=== PATIENT | male | born 1960 | race Caucasian/White ===

== ENCOUNTER 2017-09-01 20:01 | Emergency (ER) | payer MEDICARE, SELFPAY ==
[2017-09-01 20:01] VITALS: BP 181/90; PULSE 127; RESP 20; TEMP 36.6; O2SAT 97; BMI 38.8
--- NOTE | 2017-09-01 20:16 | EKG12_ITS ---
Test Reason : RHYTHM CHANGE Blood Pressure : / mmHG Vent. Rate : 078 BPM Atrial Rate : 078 BPM P-R Int : 146 ms QRS Dur : 090 ms QT Int : 372 ms P-R-T Axes : 027 036 035 degrees QTc Int : 424 ms Normal sinus rhythm Normal ECG Confirmed by CHUCKY CHEW ([id number]), assignment editor DONNA DALY ([id number]) on 09/15/2017 5:13:39 PM Referred By: LIDA Confirmed By:CHUCKY CHEW
--- NOTE | 2017-09-01 20:16 | RAD_ITS ---
STUDY: X-RAY CHEST REASON FOR EXAM: Male, 57 years old. Dyspnea, chest pain TECHNIQUE: Single AP portable view of the chest. The upper abdomen is overlying the chest. COMPARISON: February 23, 2015 chest x-ray FINDINGS: The lung bases are obscured by body habitus. There is no demonstrated pleural abnormality. There is borderline cardiomegaly. Normal mediastinum and inocente. Normal visualized pulmonary arteries. Normal visualized aortic arch and descending thoracic aorta. There are diffuse degenerative changes of the visualized thoracic spine. Normal visualized ribs, clavicles, and shoulders. There is no demonstrated abnormality of the visualized soft tissue structures of the upper abdomen. RAD/Chest 1 View (Portable) IMPRESSION: The lung bases are partially secured by the soft tissues of the abdomen. Recommend repeating this study if possible. Cannot include or exclude subtle lower lobe infiltrates. Electronically Signed: Joan Carmichael MD at 21:40 EDT Tel , Service support ,
[2017-09-01] MEDS: dilTIAZem 25 MG/5 ML Vial 10 MG IV BOLUS (20:25)
[2017-09-01 20:27] VITALS: BP 165/91; PULSE 194; RESP 24; O2SAT 98
[2017-09-01 20:34] LABS: Absolute Lymphocyte Count 2.48 X10^3/ul (0.83-4.51); Absolute Neutrophil Count 7.5 X10^3/uL (2.0-7.7); Basophil# 0.02 X10^3/uL; Basophil% 0.2 % (0-1); Eosinophil# 0.18 X10^3/uL; Eosinophils% 1.6 % (0-5); Hematocrit 44.8 % (40-54); Hemoglobin 14.7 g/dl (13.0-16.5); Lymphocyte # 2.48 X10^3/ul (4.0); Lymphocyte % 21.9 % (19-41); Mean Corp Hgb Conc 32.8 g/gl (32-36); Mean Corpuscular Hgb 28.8 pg (27.0-32.0); Mean Corpuscular Volume 87.8 fL (80-94); Mean Platelet Vol. 9.2 fl (6.2-12.0); Monocyte# 1.14 X10^3/uL; Monocyte% 10.1 % (0-10); Neutrophil # 7.48 X10^3/uL (2.7-7.7); Platelet Count 228 K/mm3 (150-450); RBC Distribution Width CV 12.9 % (11.6-14.6); RBC Distribution Width SD 41.6 fl (35.1-43.9); White Blood Count 11.3 K/mm3 (4.4-11.0)
[2017-09-01 20:35] LABS: International Normalized Ratio 1.1; POSITIVE COUNT NO; POSITIVE DIFFERENTIAL NO; POSITIVE MORPHOLOGY NO; Prothrombin Time (Protime)PT. 14.2 SECONDS (11.7-14.9)
[2017-09-01 20:36] VITALS: BP 148/79; PULSE 127; RESP 28; O2SAT 97
[2017-09-01] MEDS: Enoxaparin 120 MG/0.8 ML Syringe SC (20:51)
[2017-09-01 20:52] LABS: Anion Gap 7 (5-15); BUN 17 mg/dL (7-18); Calcium,Total 8.8 mg/dL (8.5-10.1); Chloride 105 mmol/L (98-107); Creatinine, Serum 1.06 mg/dL (0.70-1.30); EST Glomerular Filtration Rate 76 mL/min (>60); Est Glom Filt Rate - Afr Amer 92 mL/min (>60); Estimated Creatinine Clearance 82.36 ml/min; Glucose 292 mg/dL (74-106); Potassium 4.2 mmol/L (3.5-5.1); Sodium Level 138 mmol/L (136-145); Thyroid Stim Hormone (TSH) 2.46 uIU/mL (0.358-3.74)
[2017-09-01 21:29] VITALS: BP 121/75; PULSE 81; RESP 16; O2SAT 95
[2017-09-01 22:09] VITALS: BP 118/63; PULSE 75; RESP 18; O2SAT 95
--- NOTE | 2017-09-01 22:09 | EKG12_ITS ---
Test Reason : CP Blood Pressure : / mmHG Vent. Rate : 128 BPM Atrial Rate : 256 BPM P-R Int : 000 ms QRS Dur : 082 ms QT Int : 300 ms P-R-T Axes : -02 029 047 degrees QTc Int : 438 ms Atrial flutter with variable A-V block with premature ventricular or aberrantly conducted complexes Nonspecific ST abnormality Abnormal ECG Confirmed by CHUCKY CHEW ([id number]), food expeditor DONNA DALY ([id number] on 09/15/2017 5:27:17 PM Referred By: LIDA Confirmed By:CHUCKY CHEW
--- NOTE | 2017-09-01 22:57 | ED.VISSUMM ---
- ER Visit Summary Date of Service: 09/01/17 Chief Complaint: Rotations, neck burning and dyspnea while walking this evening. History of Present Illness: The patient is a 57 M who has history of hypertension presents with intermittent palpitations for the past couple of weeks. He denies history of PE or DVT. Tonchelsi's episode was different because he had tightness in his neck. He denies cold or heat intolerance. Denies weight gain or weight loss. He is a non-smoker. He does take a baby aspirin a day as well as lisinopril. He denies any ocular, visual or auditory symptoms. He denies chest pain or tightness. He denies dyspnea on exertion, orthopnea or PND. He denies any GI, or muscle symptoms. He denies any neurologic symptoms. He has had a prior stroke with right-sided residual. Physical Examination: Vital signs remarkable heart rate of 128 up to 194. Monitor reveals atrial fibrillation. HEENT exam is unremarkable. Heart is rapid and irregular. There is no murmur. Lungs are clear to auscultation. Abdomen soft nontender. He has mild edema lower extremity's. Neuro exam is nonfocal. Test Results: EKG #1 reveals atrial flutter with variable AV block. EKG #2 reveals atrial fibrillation with a rate of 180+. EKG #3 reveals a sinus rhythm rate of 73 and no ischemic changes. Troponin is normal. White count slightly elevated 11.3. Coags are normal. TSH is 2.46. Glucose is remarkable and elevated at 292. Emergency Department Course and Treatment: Since patient has new onset paroxysmal atrial fibrillation/a flutter cardiac workup was undertaken and included EKG, appropriate blood work including test TSH and troponin. Chest x-ray was obtained to evaluate for any evidence of heart failure. Patient was administered 10 mg of Cardizem IV push and placed on a Cardizem drip. I was informed that he converted. Patient was informed he will need to call Dr. Giraldo's office in the morning for outpatient workup. He was given a dose of Cardizem in the department and Eliquis. He was discharged with prescription for both. Treatment Plan: Outpatient cardiac workup Disposition: Discharge to home with spouse in stable and improved condition Impression: New onset proximal atrial fibrillation with RVR Hyperglycemia, new onset diabetes History of hypertension This note was generated with [employer] dictation software. It may contain incorrect words, spelling, and punctuation that were not noted in review of the chart prior to signing ED Disposition - Plan for ED Patient: Disposition: Home or Assisted Living Chief Complaint: Chest Pain Instructions: ED Afib, ED Diabetes Hypoglycemia Oral Agent Prescriptions: Diltiazem CD [Cardizem CD] 240 mg PO DAILY #30 cap Apixaban [Eliquis] 10 mg PO BID #26 tab Apixaban [Eliquis] 5 mg PO BID #60 tab.ds.pk Metformin HCl 500 mg PO BID #60 tab Referrals: Blayne Haynes MD [Primary Care Provider] - 1 Week Spenser Giraldo MD [STAFF PHYSICIAN] - 5-7 Days
[2017-09-01] MEDS: APIXABAN 5 MG TABLET 10 MG PO (23:36)
[2017-09-01] MEDS: dilTIAZem CD 240 MG Capsule PO (23:36)
[2017-09-01 23:39] VITALS: BP 123/80; PULSE 80; RESP 20; O2SAT 94
== END 2017-09-01 23:40 | disposition home or self-care (01) ==
PROVIDERS: Emergency Provider Emergency Medicine; Family Provider Family Medicine; PCP Family Medicine
DX: I48.0 Paroxysmal atrial fibrillation (principal); E11.65 Type 2 diabetes mellitus with hyperglycemia; I10 Essential (primary) hypertension; I69.398 Other sequelae of cerebral infarction; I63.9 Cerebral infarction, unspecified; E66.9 Obesity, unspecified; Z79.82 Long term (current) use of aspirin; Z79.899 Other long term (current) drug therapy
CPT/HCPCS: 71045; 80048; 84443; 84484; 85025; 85610; 85730; 93005; 96365; 96366; 96372; 96375; 99284; J7030; A4216

== ENCOUNTER → 2017-09-24 06:36 | Outpatient (CLI) | payer MEDICARE, SELFPAY ==
--- NOTE | 2017-09-24 09:26 | STRESSREP ---
Stress Test Report Pharmacologic myocardial perfusion stress test. 57-year-old man with a history of chest pain hypertension paroxysmal atrial fibrillation. Medications Cardizem apixaban lisinopril lovastatin. Stress protocol: Resting EKG demonstrates normal sinus rhythm with a rate of 73 bpm resting blood pressure is 140/80 mmHg. The grams of regadenoson was infused per usual protocol followed by Intravenous saline flush injection continuous EKG monitoring was performed. The patient maintained sinus rhythm throughout the recording. There were occasional ventricular couplet activity noted. The maximum heart rate was 91 bpm which was 56% of maximum predicted heart rate the maximum workload attained was 1 metabolic equivalent. The resting blood pressure was 140/80 mmHg final blood pressure was 138/82 mmHg. No clinical angina was noted. Myocardial perfusion protocol. 14.8 mCi of technetium 99m sestamibi was injected at rest. 0.4 mg regadenoson was infused per usual protocol. At peak infusion 44.6 mCi of technetium 99m sestamibi was injected stress images were obtained stress and rest images were reconstructed and compared in the short axis vertical long and horizontal long axis. Gated images were also obtained. Perfusion SPECT analysis: Review of the stress images demonstrate normal uptake of tracer noted in all areas of the myocardium. The resting images similarly demonstrate normal uptake of tracer noted in all areas of myocardium. No areas of reversibility noted suggest ischemia. No previous infarct was noted. Gated SPECT analysis: The gated ejection fraction is 67%. Conclusion: Normal pharmacologic myocardial perfusion stress test. Preserved ejection fraction.
== END ==
PROVIDERS: Family Provider Family Medicine; PCP Family Medicine; Visit Provider Internal Medicine Cardiovascular Disease
DX: I25.10 Atherosclerotic heart disease of native coronary artery without angina pectoris (principal)
CPT/HCPCS: 78452; 93017; A9500; A4216; J2785

== ENCOUNTER 2020-01-05 09:52 | Observation (INO) | payer MEDICARE, SELFPAY ==
[2020-01-05] VITALS (11 sets, daily range): BP systolic 112–135; BP diastolic 47–86; PULSE 61–101; RESP 16–22; TEMP 36.4–37.5; O2SAT 95–98; BMI 37.0; BMI 36.2
--- NOTE | 2020-01-05 10:10 | EKG12_ITS ---
Test Reason : PALPS Blood Pressure : / mmHG Vent. Rate : 101 BPM Atrial Rate : 101 BPM P-R Int : 148 ms QRS Dur : 102 ms QT Int : 374 ms P-R-T Axes : 021 014 030 degrees QTc Int : 484 ms Sinus tachycardia with frequent and consecutive Premature ventricular complexes Abnormal ECG Confirmed by GLO SCHREIBER, JOSE ALFREDO ([id number]), editor publications MIKE MENA ([id number]) on 01/10/2020 2:20:37 PM Referred By: BECKY Confirmed By:JOSE ALFREDO CODY MD
--- NOTE | 2020-01-05 10:10 | EKG12_ITS ---
Test Reason : PALPS Blood Pressure : / mmHG Vent. Rate : 078 BPM Atrial Rate : 078 BPM P-R Int : 146 ms QRS Dur : 096 ms QT Int : 374 ms P-R-T Axes : 022 010 031 degrees QTc Int : 426 ms Sinus rhythm with frequent Premature ventricular complexes Inferior infarct , age undetermined Abnormal ECG Confirmed by GLO SCHREIBER, JOSE ALFREDO ([id number]), news copy editor MIKE MENA ([id number]) on 01/10/2020 2:20:21 PM Referred By: BECKY Confirmed By:JOSE ALFREDO CODY MD
--- NOTE | 2020-01-05 10:10 | ED.VIS.GEN ---
History of Present Illness Chief Complaint: Palpitations Informant: Patient, Family, Data Software Engineer Narrative: 59-year-old male with a prior history of stroke and paroxysmal A. fib presents the emergency department with palpitations and dyspnea. He tells me for the past week he has been having exertional symptoms of sweating shortness of breath and fatigue. As long as he is at rest he feels okay but continues to have palpitations at rest. He was seen by primary care was reported to have nonsustained V. tach. EMS was called to transport him to the hospital. He is on Eliquis and diltiazem. 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 Nursing informs me that they were notified by the patient's that she has been administering medications only once a day. She states that she had heard that metformin was not good for people so she has been giving half the dose. Eliquis is also been given once a day. Noted to be hyperglycemic for EMS in the 350 range. - Past Medical History (1) Essential hypertension Status: Chronic (2) Gastroesophageal reflux disease Status: Chronic (3) HISTORY ISCHEMIC STROKE Status: Chronic (4) Hemiparesis Status: Chronic (5) Obstructive sleep apnea syndrome Status: Chronic (6) ocular toxoplasmosis Status: Chronic Past Medical History - Allergies and Home Meds Allergies/Adverse Reactions: Allergies No Known Allergies Allergy (Verified 01/05/20 09:56) Primary Care Physician: Blayne Haynes MD [Primary Care Provider] - Past Medical History: - - Atrial fibrillation Surgical History: noncontributory Lives: Spouse/ Significant Other Smoking Status: Never smoker Drugs: None Review of Systems General: Denies: Chills, Fever, Sweats Eyes: Denies: Visual changes - bilaterally, Diplopia ENT: Denies: Rhinorrhea, Sore throat Cardiovascular: Reports: Chest pain, Palpitations Respiratory: Reports: Dyspnea, Dyspnea on exertion. Denies: Cough Gastrointestinal: Denies: Abdominal pain, Nausea, Vomiting, Diarrhea, Melena, Hematochezia Genitourinary: Denies: Dysuria, Hematuria, Frequency Musculoskeletal: Denies: Back pain, Extremity Pain Skin: Denies: Rash, Wounds Neurological: Denies: Headache, Weakness, Numbness Physical Exam Vital Signs/Narrative: Vital Signs Temp Pulse Resp BP Pulse Ox 01/05/20 10:08 99.5 F H 98 20 H 135/86 H 96 01/05/20 09:56 99.5 F H 99 22 H 132/71 H 95 Inital Vital Signs reviewed: Yes General: Well nourished, Well developed, No Acute Distress Head: Normocephalic, Atraumatic Eyes: Perrl, EOMI ENT: Moist mucous membranes, No rhinorrhea Neck: Supple, Nontender Cardiovascular: Regular rate, Regular rhythm, No murmurs, - - Patient appears to be having frequent PVCs and nonsustained V. tach of 8-10 beat duration. Respiratory: No distress, CTA bilaterally, Chest nontender Abdomen: Soft, Nontender, Nondistended, Normal bowel sounds Back: Nontender, Normal Inspection Extremities: Nontender, No edema Skin: Normal color, No rash Neurological: Alert, Oriented x3, Cranial nerves II-XII grossly intact, - - Chronic right-sided weakness with contracture Psychological: Normal affect, Normal Mood Diagnostic/Tx/Re-eval Clinical Impression(s) from Imaging Studies Chest X-Ray 01/05/20 10:20 IMPRESSION: Hyperinflation. No acute abnormality is seen. Electronically Signed: Horace Neema, at 11:05 EDT , Service support , Laboratory Last Values WBC 9.2 K/mm3 (4.4-11.0) 01/05/20 10:00 RBC 5.28 M/mm3 (4.6-6.2) 01/05/20 10:00 Hgb 15.0 g/dL (13.0-16.5) 01/05/20 10:00 Hct 47.0 % (40-54) 01/05/20 10:00 MCV 89.0 fL (80-94) 01/05/20 10:00 MCH 28.4 pg (27.0-32.0) 01/05/20 10:00 MCHC 31.9 g/dL (32-36) L 01/05/20 10:00 RDW Std Deviation 40.7 fl (35.1-43.9) 01/05/20 10:00 RDW Coeff of [place] 12.5 % (11.6-14.6) 01/05/20 10:00 Plt Count 287 K/mm3 (150-450) 01/05/20 10:00 MPV 9.6 fl (6.2-12.0) 01/05/20 10:00 Immature Gran % (Auto) 0.300 % (0.0-0.9) 01/05/20 10:00 Neut % (Auto) 65.6 % (47-70) 01/05/20 10:00 Lymph % (Auto) 21.7 % (19-41) 01/05/20 10:00 [place] % (Auto) 10.6 % (0-10) H 01/05/20 10:00 Eos % (Auto) 1.4 % (0-5) 01/05/20 10:00 Baso % (Auto) 0.4 % (0-1) 01/05/20 10:00 Absolute Neuts (auto) 6.0 X10^3/uL (2.0-7.7) 01/05/20 10:00 Absolute Lymphs (auto) 1.99 X10^3/uL (0.83-4.51) 01/05/20 10:00 Nucleated RBC % 0 % (0-5) 01/05/20 10:00 PT 13.7 SECONDS (11.7-14.9) 01/05/20 10:00 INR 1.1 01/05/20 10:00 APTT 29.6 Seconds (24.1-36.2) 01/05/20 10:00 Sodium 136 mmol/L (136-145) 01/05/20 10:00 Potassium 4.4 mmol/L (3.5-5.1) 01/05/20 10:00 Chloride 103 mmol/L (98-107) 01/05/20 10:00 Carbon Dioxide 29.0 mmol/L (21.0-32.0) 01/05/20 10:00 Anion Gap 4 (5-15) L 01/05/20 10:00 BUN 18 mg/dL (7-18) 01/05/20 10:00 Creatinine 0.98 mg/dL (0.70-1.30) 01/05/20 10:00 Estim Creat Clear Calc 86.88 ml/min 01/05/20 10:00 Est GFR (MDRD) Af Amer 100 mL/min (>60) 01/05/20 10:00 Est GFR (MDRD) Non-Af 83 mL/min (>60) 01/05/20 10:00 BUN/Creatinine Ratio 18.4 RATIO (10-20) 01/05/20 10:00 Glucose 328 mg/dL (74-106) H 01/05/20 10:00 Calcium 9.3 mg/dL (8.5-10.1) 01/05/20 10:00 Magnesium 2.1 mg/dL (1.6-2.6) 01/05/20 10:00 Troponin I < 0.015 ng/mL (<0.045) 01/05/20 10:00 - EKG Initial EKG Interpretation: Sinus Rhythm - Sinus rhythm with frequent PVCs with no concerning features of ACS. Rate of 78 - Medical Decision Making Reviewing his EKGs from the office today I think this is less likely to be V. tach but probably A. fib with aberrancy. Cardiac enzymes are negative. He is mostly been in a sinus rhythm. However his exertional symptoms are very concerning. I am also very concerned about the underdosing of his metformin and his Eliquis. It is been several years (2018) since a stress test has been done. Please reasonable we bring him in for further cardiac evaluation. ED Disposition - Plan for ED Patient: Disposition: Acute Care Hospital [facility] Diagnosis: Paroxysmal atrial fibrillation, Exertional dyspnea Referrals: Blayne Haynes MD [Primary Care Provider] -
--- NOTE | 2020-01-05 10:20 | RAD_ITS ---
STUDY: X-RAY CHEST REASON FOR EXAM: Male, 59 years old. INCREASED DIFFICULTY BREATHING WITH EXERTION. EKG AT OFFICE SHOWED FREQUENT PVCs WITH SHORT RUNS OF VTACH TECHNIQUE: Single AP portable view of the chest. COMPARISON: Comparison is made with prior examination dated 09/01/2017. FINDINGS: EKG electrodes are seen. Hyperinflation. There are decreased bronchovascular markings in the upper lobes suggestive of a emphysematous change. There is no demonstrated pleural abnormality. There is mild cardiac enlargement. Normal mediastinum and inocente. Normal visualized pulmonary arteries. There is atherosclerotic calcification of the aortic arch with tortuosity. There are degenerative changes of the visualized thoracic spine. Normal visualized ribs, clavicles, and shoulders. There is no demonstrated abnormality of the visualized soft tissue structures of the upper abdomen. RAD/Chest 1 View (Portable) IMPRESSION: Hyperinflation. No acute abnormality is seen. Electronically Signed: Horace Bethea, at 11:05 EDT , Service support ,
[2020-01-05 10:28] LABS: International Normalized Ratio 1.1; Prothrombin Time (Protime)PT. 13.7 SECONDS (11.7-14.9)
[2020-01-05 10:29] LABS: Partial Thromboplast Time 29.6 Seconds (24.1-36.2)
[2020-01-05 10:36] LABS: Anion Gap 4 (5-15); BUN 18 mg/dL (7-18); BUN/Creat Ratio 18.4 RATIO (10-20); Calcium,Total 9.3 mg/dL (8.5-10.1); Chloride 103 mmol/L (98-107); Creatinine, Serum 0.98 mg/dL (0.70-1.30); EST Glomerular Filtration Rate 83 mL/min (>60); Est Glom Filt Rate - Afr Amer 100 mL/min (>60); Estimated Creatinine Clearance 86.88 ml/min; Glucose 328 mg/dL (74-106); Magnesium 2.1 mg/dL (1.6-2.6); Potassium 4.4 mmol/L (3.5-5.1); Sodium Level 136 mmol/L (136-145)
[2020-01-05 10:38] LABS: Absolute Lymphocyte Count 1.99 X10^3/uL (0.83-4.51); Basophil# 0.04 X10^3/uL; Basophil% 0.4 % (0-1); Eosinophil# 0.13 X10^3/uL; Eosinophils% 1.4 % (0-5); Lymphocyte # 1.99 X10^3/ul (4.0); Lymphocyte % 21.7 % (19-41); Mean Corp Hgb Conc 31.9 g/dL (32-36); Mean Corpuscular Hgb 28.4 pg (27.0-32.0); Mean Platelet Vol. 9.6 fl (6.2-12.0); Monocyte# 0.97 X10^3/uL; Monocyte% 10.6 % (0-10); NRBC Flagged by Analyzer 0 % (0-5); Neutrophil # 6.03 X10^3/uL (2.7-7.7); Neutrophil % 65.6 % (47-70); Platelet Count 287 K/mm3 (150-450); RBC Distribution Width CV 12.5 % (11.6-14.6); RBC Distribution Width SD 40.7 fl (35.1-43.9); Red Blood Count 5.28 M/mm3 (4.6-6.2); White Blood Count 9.2 K/mm3 (4.4-11.0)
--- NOTE | 2020-01-05 11:43 | HP.PCM_ITS ---
Problem List (1) PVC (premature ventricular contraction) Status: Acute (2) Paroxysmal atrial fibrillation Status: Chronic (3) Exertional dyspnea Status: Acute (4) ocular toxoplasmosis Status: Chronic (5) Obstructive sleep apnea syndrome Status: Chronic (6) HISTORY ISCHEMIC STROKE Status: Chronic (7) Hemiparesis Status: Chronic (8) Gastroesophageal reflux disease Status: Chronic (9) Essential hypertension Status: Chronic History of Present Illness Date of Admission: 01/05/20 Chief Complaint: palpitations The patient is a 59 year old M for the past week has been experiencing palpitations. Palpitations seem to be more aggravated with exertion and patient is endorsing that he is getting short of breath. He denies any chest pain, however. Saw his physician today who directed him to the emergency room. Patient had an EKG showed some bursts of PVCs and with 2-4 burst. Currently he is in normal sinus rhythm. Recently his medications have been adjusted instead of taking them twice a day is only taking certain medications just once a day, including apixaban. [] Past Medical History Past Medical History (Chronic Problems): Chronic Problems Paroxysmal atrial fibrillation (Chronic) ocular toxoplasmosis (Chronic) Obstructive sleep apnea syndrome (Chronic) HISTORY ISCHEMIC STROKE (Chronic) Hemiparesis (Chronic) Gastroesophageal reflux disease (Chronic) Essential hypertension (Chronic) Allergies No Known Allergies Allergy (Verified 01/05/20 09:56) Home Medications: Ambulatory Orders Medication Instructions Recorded Lisinopril 20 mg PO DAILY 09/20/15 Diltiazem CD [Cardizem CD] 240 mg PO DAILY #30 cap 09/01/17 Metformin HCl 500 mg PO BID #60 tab 09/01/17 Apixaban [Eliquis] 5 mg PO DAILY 01/05/20 Lovastatin 20 mg PO DAILY 01/05/20 Surgical History: noncontributory Lives: Spouse/ Significant Other Smoking Status: Never smoker Drugs: None - *Family History Paternal History Items: Heart Disease Review of Systems Constitutional: Denies: Anorexia, Chills, Fever, Night Sweats Eyes: Denies: Blurred vision, Double vision HEENT: Denies: Head Aches, Sinus Congestion, Sinus Drainage Cardiovascular: Denies: Chest Pain, Palpitations Respiratory: Denies: Cough, Shortness of breath at rest, Sputum production Gastrointestinal: Denies: Abdominal Pain, Nausea, Vomiting Musculoskeletal: Denies: Joint Pain, Joint Tenderness Skin: Denies: Rash, Wounds Neurological: Reports: Focal weakness. Denies: Numbness, Tingling Psychiatric: Denies: Anxiety, Depression Hematologic/ Lymphatic: Denies: Easy Bruising, Easy Bleeding, Hx of blood clot Comment: All review of systems were negative except as mentioned above in the history of present illness and the other review of systems. VTE Information - Inpt Only VTE Present on Admission: No VTE Mechan Device Prophylaxis: None VTE Pharm Prophylaxis ordered?: No Reason prophylaxis not ordered:: Treatment Not Indicated Patient Problems: Active and Suspected Problems Exertional dyspnea (Acute) PVC (premature ventricular contraction) (Acute) - Physical Exam Vitals/I&O's: Vital Signs Temp Pulse Resp BP Pulse Ox 37.5 C H 98 20 H 135/86 H 95 01/05/20 10:08 01/05/20 10:08 01/05/20 10:08 01/05/20 10:08 01/05/20 10:22 Oxygen Delivery Method Room Air Weight: 123.7 kg Body Mass Index (BMI) 37.0 General: Alert, Cooperative, No apparent distress HEENT: Atraumatic, Normocephalic Oral: Moist Mucosa, No Gingival or Mucosal Lesions/ Ulcerations Neck: No Nodes, Thyroid Normal Size and Texture Lungs: Clear to auscultation, Normal air movement, No rhonchi, No wheeze, No rales Cardiovascular: Regular rate, Regular Rhythm, Normal S1, Normal S2, No murmurs Abdomen: Bowel Sounds Present, Soft, Non Tender, Non-Distended, No Hepato- splenomegaly Extremities: No edema, No Calf Tenderness Skin: No rashes, No breakdown Neurological: - - contracted right hand Psych/Mental Status: Normal Affect, Appropriate Laboratory Results 01/05/20 10:00: WBC 9.2, RBC 5.28, Hgb 15.0, Hct 47.0, MCV 89.0, MCH 28.4, MCHC 31.9 L, RDW Std Deviation 40.7, RDW Coeff of [place] 12.5, Plt Count 287, MPV 9.6, I mmature Gran % (Auto) 0.300, Neut % (Auto) 65.6, Lymph % (Auto) 21.7, [place] % (Auto) 10.6 H, Eos % (Auto) 1.4, Baso % (Auto) 0.4, Absolute Neuts (auto) 6.0, Absolute Lymphs (auto) 1.99, Nucleated RBC % 0 01/05/20 10:00: PT 13.7, INR 1.1, APTT 29.6 01/05/20 10:00: Sodium 136, Potassium 4.4, Chloride 103, Carbon Dioxide 29.0, Anion Gap 4 L, BUN 18, Creatinine 0.98, Estim Creat Clear Calc 86.88, Est GFR (MDRD) Af Amer 100, Est GFR (MDRD) Non-Af 83, BUN/Creatinine Ratio 18.4, Glucose 328 H, Calcium 9.3, Magnesium 2.1, Troponin I < 0.015 EKG reviewed and showed PVCs with burst of 2 and 4 over normal sinus rhythm. Telemetry reviewed and patient has been in normal sinus rhythm. Chest x-ray personally reviewed and showed normal lung shirley with no infiltrate nor edema. Assessment/Plan All Active Problems Exertional dyspnea (Acute) PVC (premature ventricular contraction) (Acute) 1. Premature ventricular contractions * Associated with dyspnea. Concern for cardiac equivalent. * Plan is to have the patient have a stress test and further evaluate if there is any underlining ischemic disease. * Potassium and magnesium were normal 2. Diabetes mellitus type 2, uncontrolled * Continue with metformin * Sliding scale insulin * Check an A1c 3. History of stroke * Continue with apixaban but make it twice daily 4. Paroxysmal atrial fibrillation * On apixaban. Continue with diltiazem. 5. VTE prophylaxis: Already anticoagulated 6. Advanced care planning: Discussed with the patient. Patient wishes to be DNR Comfort Care arrest and no intubation. Informed patient that he is certainly welcome to change his mind on this at any time. OBSV E&M: [id number] Initial observation care L2
--- NOTE | 2020-01-05 11:55 | NURSING ---
PCU RAQUEL AFIB EXERTIONAL DYSPNEA
--- NOTE | 2020-01-05 12:33 | EKG12_ITS ---
Test Reason : AM Blood Pressure : / mmHG Vent. Rate : 062 BPM Atrial Rate : 062 BPM P-R Int : 150 ms QRS Dur : 098 ms QT Int : 434 ms P-R-T Axes : 007 032 039 degrees QTc Int : 440 ms Normal sinus rhythm Normal ECG When compared with ECG of 05-JAN-2020 10:00, MANUAL COMPARISON REQUIRED, DATA IS UNCONFIRMED Confirmed by BASSAM SCHREIBER, EMILY ([id number]), editor magazine MIKE MENA ([id number]) on 01/11/2020 9:14:03 AM Referred By: RAQUEL Confirmed By:PEYTON BANEGAS MD
[2020-01-05 13:23] LABS: Hemoglobin A1c 9.7 % (3.8-5.6)
[2020-01-05] MEDS: Insulin Lispro 100 UNIT/ML INSULN.PEN SC (17:26)
[2020-01-05] MEDS: metFORMIN HCl 500 MG Tablet PO (17:26)
[2020-01-05 17:36] LABS: Bedside Glucose 247 mg/dL (70-110)
[2020-01-05] MEDS: Atorvastatin Calcium 10 MG Tablet 5 MG PO (21:17)
[2020-01-05] MEDS: APIXABAN 5 MG TABLET PO (21:18)
[2020-01-05 21:25] LABS: Bedside Glucose 255 mg/dL (70-110)
[2020-01-06] VITALS (8 sets, daily range): BP systolic 115–144; BP diastolic 68–91; PULSE 57–83; RESP 16–20; TEMP 36.5–37.1; O2SAT 95–98
--- NOTE | 2020-01-06 05:55 | EKG12_ITS ---
Test Reason : C.P. ADMIT Blood Pressure : / mmHG Vent. Rate : 067 BPM Atrial Rate : 067 BPM P-R Int : 158 ms QRS Dur : 102 ms QT Int : 400 ms P-R-T Axes : 023 012 038 degrees QTc Int : 422 ms Normal sinus rhythm Normal ECG No previous ECGs available Confirmed by BASSAM SCHREIBER, EMILY ([id number]), tape editor MIKE MENA ([id number]) on 01/11/2020 9:15:38 AM Referred By: RAQUEL Confirmed By:PEYTON BANEGAS MD
[2020-01-06] MEDS: Lisinopril 20 MG Tablet PO (06:35)
[2020-01-06] MEDS: Aspirin E.C. 81 MG Tablet PO (06:35)
[2020-01-06] MEDS: 0.9% Saline Lock 10 ML Syringe IV (06:47)
[2020-01-06 06:50] LABS: Bedside Glucose 213 mg/dL (70-110)
[2020-01-06] MEDS: metFORMIN HCl 500 MG Tablet PO (10:51)
[2020-01-06] MEDS: dilTIAZem CD 240 MG Capsule PO (10:52)
[2020-01-06 11:46] LABS: Bedside Glucose 311 mg/dL (70-110)
[2020-01-06] MEDS: Insulin Lispro 100 UNIT/ML INSULN.PEN SC (11:59)
--- NOTE | 2020-01-06 12:13 | PCM.PN.HOSP ---
<Dao Cortes PA - Last Filed: 01/06/20 12:13> Patient Problems: Active and Suspected Problems Exertional dyspnea (Acute) PVC (premature ventricular contraction) (Acute) Reason for Visit: palpitations Subjective: no palpitations today. no cp. pt does get SOB with stairs. Pt father had significant hx multiple MIs. Pt denies hx CAD. On cardizem for pAfib. Currently NSR. Has not seen cardiology since Dr. Diaz retired. Vitals/I&O's: Vital Signs Temp Pulse Resp BP Pulse Ox 98.7 F 73 16 130/80 H 95 01/06/20 12:05 01/06/20 12:05 01/06/20 12:05 01/06/20 12:05 01/06/20 12:05 Oxygen Delivery Method Room Air Weight: 266 lb 15.677 oz Body Mass Index (BMI) 36.2 Intake and Output for Last 24 Hours 01/04/20 01/05/20 01/06/20 23:59 23:59 23:59 Intake Total 650 / 650 220 / 220 Output Total 1150 / 1150 750 / 750 Balance -500 / -500 -530 / -530 General: Alert, Oriented x3, Cooperative HEENT: Atraumatic, PERRLA, EOMI, Normocephalic Neck: Supple, No JVD, Negative Carotid Bruits Lungs: Clear to auscultation, Normal air movement Cardiovascular: Regular rate, No murmurs Abdomen: Bowel Sounds Present, Soft, Non Tender Extremities: No edema, Capillary Refill Less than 3 Seconds Skin: No rashes, No breakdown Musculoskeletal: No Tenderness to Palpation of Joints or Extremities Neurological: Cranial nerves II-XII grossly intact Psych/Mental Status: Normal Affect, Appropriate, Alert and oriented to time, place, person, mood and affect Laboratory Results 01/05/20 10:00: Hemoglobin A1c 9.7 H 01/05/20 13:05: Troponin I < 0.015 01/05/20 16:25: Troponin I < 0.015 01/05/20 17:16: POC Glucose 247 H 01/05/20 21:22: POC Glucose 255 H 01/06/20 06:34: POC Glucose 213 H 01/06/20 11:42: POC Glucose 311 H Current Medications Acetaminophen (Tylenol) 650 mg PO Q6H PRN PRN PRN Reason: Pain Score 1-10/Temp > 100.7 F Apixaban (Eliquis) 5 mg PO BID [facility] Last Admin: 01/05/20 21:18 Dose: 5 mg Documented by: Aspirin (Ecotrin) 81 mg PO DAILY@0800 [facility] Last Admin: 01/06/20 06:35 Dose: 81 mg Documented by: Atorvastatin Calcium (Lipitor) 5 mg PO QHS [facility] Last Admin: 01/05/20 21:17 Dose: 5 mg Documented by: Dextrose (D50w Syringe) 0 gm IV X1 PRN; Protocol PRN Reason: Hypoglycemia Diltiazem HCl (Cardizem Cd) 240 mg PO DAILY [facility] Last Admin: 01/06/20 10:52 Dose: 240 mg Documented by: Glucagon () 1 mg IM .X1 PRN PRN Reason: Hypoglycemia Sodium Chloride () 250 mls @ 15 mls/hr IV .[id number] PRN PRN Reason: Saline Flush Sodium Chloride () 250 mls @ 15 mls/hr IV .[id number] PRN PRN Reason: Additional IVPB Infusion Insulin Human Lispro (Humalog Kwikpen (Bkc)) 0 unit SC TIDAC [facility]; Protocol Last Admin: 01/06/20 11:59 Dose: 5 units Documented by: Lisinopril (Zestril) 20 mg PO DAILY [facility] Last Admin: 01/06/20 06:35 Dose: 20 mg Documented by: Met[facility]) [facility] Last Admin: 01/06/20 10:51 Dose: 500 mg Documented by: Nitroglycerin (Nitrostat) 0.4 mg SUBLINGUAL Q5M PRN PRN Reason: CARDIAC/CHEST PAIN Ondansetron HCl (Zofran) 4 mg IV Q8H PRN PRN PRN Reason: NAUSEA/VOMITING Oxycodone HCl (Oxyir) 5 mg PO Q4H PRN PRN PRN Reason: Pain Score 4-5/10 Oxycodone HCl (Oxyir) 10 mg PO Q4H PRN PRN PRN Reason: Pain Score 6-10/10 Sodium Chloride () 10 - 40 ml IV UD PRN PRN Reason: SALINE FLUSH Last Admin: 01/06/20 06:47 Dose: 10 ml Documented by: STROKE Vital Signs/Narrative: Vital Signs Temp Pulse Resp BP Pulse Ox 01/06/20 12:05 98.7 F 73 16 130/80 H 95 Medical Necessity - Tobacco Use Smoking Status: Never smoker Assessment/Plan All Active Problems Exertional dyspnea (Acute) PVC (premature ventricular contraction) (Acute) 1. Palpitations - stress pending. Non sustatined vtach on monitor. cardizem continued. pt no longer has cigar patcher. Trop neg. CXR hyperinflation. Hx SOB with stairs and significant fm hx of CAD. 2. pAfib - background rhythm is sinus. cardizem/eliquis. 3. hx CVBA - aspirin/statin 4. HTN - continue home meds. 5. DMt2 - metformin, ssi DVT ppx: eliquis This patient was seen by Dao Cortes PA-C under the supervision of Dr. Kiran <Ronald Kiran - Last Filed: 01/06/20 14:00> Vitals/I&O's: Vital Signs Temp Pulse Resp BP Pulse Ox 37.1 C 73 16 130/80 H 95 01/06/20 12:05 01/06/20 12:05 01/06/20 12:05 01/06/20 12:05 01/06/20 12:05 Oxygen Delivery Method Room Air Weight: 121.1 kg Body Mass Index (BMI) 36.2 Intake and Output for Last 24 Hours 01/04/20 01/05/20 01/06/20 23:59 23:59 23:59 Intake Total 650 / 650 220 / 220 Output Total 1150 / 1150 750 / 750 Balance -500 / -500 -530 / -530 General: Alert, Cooperative HEENT: Atraumatic, Normocephalic Lungs: Clear to auscultation, Normal air movement, No rhonchi, No wheeze Cardiovascular: Regular rate, Regular Rhythm, Normal S1, Normal S2, No murmurs Abdomen: Bowel Sounds Present, Soft, Non Tender, Non-Distended Extremities: No edema, No Calf Tenderness Skin: No rashes, No breakdown Psych/Mental Status: Normal Affect, Appropriate Laboratory Results 01/05/20 16:25: Troponin I < 0.015 01/05/20 17:16: POC Glucose 247 H 01/05/20 21:22: POC Glucose 255 H 01/06/20 06:34: POC Glucose 213 H 01/06/20 11:42: POC Glucose 311 H Current Medications Acetaminophen (Tylenol) 650 mg PO Q6H PRN PRN PRN Reason: Pain Score 1-10/Temp > 100.7 F Apixaban (Eliquis) 5 mg PO BID [facility] Last Admin: 01/05/20 21:18 Dose: 5 mg Documented by: Aspirin (Ecotrin) 81 mg PO DAILY@0800 [facility] Last Admin: 01/06/20 06:35 Dose: 81 mg Documented by: Atorvastatin Calcium (Lipitor) 5 mg PO QHS [facility] Last Admin: 01/05/20 21:17 Dose: 5 mg Documented by: Dextrose (D50w Syringe) 0 gm IV X1 PRN; Protocol PRN Reason: Hypoglycemia Diltiazem HCl (Cardizem Cd) 240 mg PO DAILY [facility] Last Admin: 01/06/20 10:52 Dose: 240 mg Documented by: Glucagon () 1 mg IM .X1 PRN PRN Reason: Hypoglycemia Sodium Chloride () 250 mls @ 15 mls/hr IV .[id number] PRN PRN Reason: Saline Flush Sodium Chloride () 250 mls @ 15 mls/hr IV .[id number] PRN PRN Reason: Additional IVPB Infusion Insulin Human Lispro (Humalog Kwikpen (Bkc)) 0 unit SC TIDAC [facility]; Protocol Last Admin: 01/06/20 11:59 Dose: 5 units Documented by: Lisinopril (Zestril) 20 mg PO DAILY [facility] Last Admin: 01/06/20 06:35 Dose: 20 mg Documented by: Metformin HCl (Glucophage) [facility] Last Admin: 01/06/20 10:51 Dose: 500 mg Documented by: Nitroglycerin (Nitrostat) 0.4 mg SUBLINGUAL Q5M PRN PRN Reason: CARDIAC/CHEST PAIN Ondansetron HCl (Zofran) 4 mg IV Q8H PRN PRN PRN Reason: NAUSEA/VOMITING Oxycodone HCl (Oxyir) 5 mg PO Q4H PRN PRN PRN Reason: Pain Score 4-5/10 Oxycodone HCl (Oxyir) 10 mg PO Q4H PRN PRN PRN Reason: Pain Score 6-10/10 Sodium Chloride () 10 - 40 ml IV UD PRN PRN Reason: SALINE FLUSH Last Admin: 01/06/20 06:47 Dose: 10 ml Documented by: STROKE Vital Signs/Narrative: Vital Signs Temp Pulse Resp BP BP Pulse Ox 01/06/20 12:05 37.1 C 73 16 130/80 H 95 01/06/20 11:30 37.0 C 83 20 H 128/69 H 95 Assessment/Plan Patient seen and examined independently. Data reviewed. I agree with the above note by the physician assistant community manager. 1. Premature ventricular contractions Associated with dyspnea. Concern for cardiac equivalent. Plan is to have the patient have a stress test and further evaluate if there is any underlining ischemic disease. Potassium and magnesium were normal 2. Diabetes mellitus type 2, uncontrolled Continue with metformin Sliding scale insulin Check an A1c 3. History of stroke Continue with apixaban but make it twice daily 4. Paroxysmal atrial fibrillation On apixaban. Continue with diltiazem. 5. VTE prophylaxis: Already anticoagulated 6. Advanced care planning: Discussed with the patient. Patient wishes to be DNR Comfort Care arrest and no intubation. Informed patient that he is certainly welcome to change his mind on this at any time. Inpatient E&M: 11782 Subs Hosp L2
--- NOTE | 2020-01-06 14:18 | STRESSREP ---
Stress Test Report Date: 01/06/2020 Procedure: Pharmacologic stress nuclear imaging study Indications: Chest pain Consent: Per the patient Procedure: The patient underwent pharmacologic (Regadenoson) evaluation with a peak heart rate of 116 beats per minute (72%predicted maximal heart rate) and a peak blood pressure of 138/70 mmHg. The baseline ECG demonstrated sinus rhythm. EKG during lexiscan infusion revealed no significant ischemic ST-T changes. EKG post infusion revealed no significant ST-T changes. Patient had PVCs with a 5 beat run of nonsustained V. tach. Patient had a 5 beat run of nonsustained V. tach in the post infusion period. He also had occasional PVCs early after infusion. [There was no complaint of chest discomfort during pharmacologic infusion or recovery]. The examination was discontinued secondary to completion of protocol. Impression: 1. Lexiscan stress test test is negative for Lexiscan infusion induced EKG changes of ischemia. 2. Lexiscan stress test test is negative for Lexiscan infusion induced chest pain. 3. Results of the nuclear portion of the test is as below Myocardial perfusion imaging study: Technique: The patient was injected with 14 millicuries of technetium 99m Cardiolite and subsequently rest SPECT Cardiolite nuclear imaging was obtained in the horizontal long, vertical long, and short axis views. The patient underwent pharmacologic (Regadenoson) evaluation. Please see above for details. The patient was injected with 42 millicuries of technetium 99m Cardiolite and subsequently stress SPECT Cardiolite nuclear imaging was obtained in the horizontal long, vertical long, and short axis views. A gated Cardiolite study at peak stress was obtained. Interpretation: Rest and stress SPECT Cardiolite nuclear imaging status post realignment, normalization, and attenuation correction demonstrate normal myocardial radioisotope uptake overall. Gated images reveal no significant regional wall motion abnormalities. The reported LVEF is greater than 70%. Impression: 1. There is no evidence of significant ischemia or infarction. 2. Estimated ejection fraction is greater than 70%. This note was generated with [email or web address] software. It may contain incorrect words, spelling, and punctuation that were not noted in checking the note before signing.
[2020-01-06] MEDS: APIXABAN 5 MG TABLET PO (14:56)
--- NOTE | 2020-01-06 15:26 | PCM.DC ---
- Discharge Diagnoses Current Active Problems: Current Active and Chronic Problems Paroxysmal atrial fibrillation (Chronic) Exertional dyspnea (Acute) PVC (premature ventricular contraction) (Acute) You will use the following diet at home:: Cardiac Your food should be the consistency of: Regular Your liquids should be the consistency of: Regular/Thin Discharge Activity: Return to Normal Activity Allergies/Adverse Reactions: Allergies No Known Allergies Allergy (Verified 01/05/20 09:56) Medications to take at Discharge Lisinopril 20 mg PO DAILY 09/20/15 Diltiazem CD [Cardizem CD] 240 mg PO DAILY #30 cap 09/01/17 Apixaban [Eliquis] 5 mg PO BID 01/05/20 Aspirin E.C. [Ecotrin] 81 mg PO DAILY@0800 01/05/20 Lovastatin 20 mg PO DAILY 01/05/20 Metformin HCl 500 mg PO TID 01/05/20 Metoprolol Tartrate 25 mg PO BID #60 tab 01/06/20 The following prescriptions were given: Metoprolol Tartrate 25 mg PO BID #60 tab Transmission Status: Pending to [facility]/pharmacy #[id number] Primary Care Physician: Blayne Haynes MD [Primary Care Provider] - Please follow up with your Primary Care Physician in: 1-2 weeks Test Results: Test results from this visit will be discussed in further detail at your follow-up appointment, if applicable. Please Follow Up With: Jaclyn Gill MD When: 3 weeks Proposed Discharge Date: 01/06/20
--- NOTE | 2020-01-06 15:27 | PCM.DC.SUM ---
Discharge Date and Diagnosis - Problem List Patient Problems: Active and Suspected Problems Exertional dyspnea (Acute) PVC (premature ventricular contraction) (Acute) Date of Admission: 01/05/20 Date of Discharge: 01/06/20 - Primary Discharge Diagnosis Acute Problems: Active Problems Palpitations and exertional dyspnea 2/2 PVCs, Nonsustained Vtach Hx pAfib HTN - Secondary Discharge Diagnosis Chronic Problems: Chronic Problems Paroxysmal atrial fibrillation (Chronic) ocular toxoplasmosis (Chronic) Obstructive sleep apnea syndrome (Chronic) HISTORY ISCHEMIC STROKE (Chronic) Hemiparesis (Chronic) Gastroesophageal reflux disease (Chronic) Essential hypertension (Chronic) Hospital Course and Treatment Imaging Results: RAD/Chest 1 View (Portable) IMPRESSION: Hyperinflation. No acute abnormality is seen. Stress test: Interpretation: Rest and stress SPECT Cardiolite nuclear imaging status post realignment, normalization, and attenuation correction demonstrate normal myocardial radioisotope uptake overall. Gated images reveal no significant regional wall motion abnormalities. The reported LVEF is greater than 70%. Impression: 1. There is no evidence of significant ischemia or infarction. 2. Estimated ejection fraction is greater than 70%. Operations: None Procedures: Stress test Summary of Care Provided: Hospital Course: The patient is a 59 year old M with pmhx of paroxysmal Afib former patient of Dr. Baez, hx CVA, HTN, DMt2, who presented to the ER with chief complaint of palpitations. These were reported as worse with exertion and he reported associated SOB with exertion specifically with climbing stairs. He had no chest pain. In the ER he had an EKG with a sinus rhythm and PVCs. He did not have afib. Troponin was negative. CXR showed hyperinflation. He also admitted he was taking his eliquis only once per day. He was kept in the PCU on tele overnight. He had nonsustained Vtach on the monitor periodically overnight up to 15 beats at a time. He continued to have a normal sinus rhythm background rhythm with no afib. He had negative trop x3. He had a negative stress test the following day with an EF of 70%. The patient had not seen a forging press setter up since Dr. Brandt retired. He was placed on a beta debby and arrangements were made for him to follow up with cardiology - Dr. Gill in 3 weeks. He was discharged home in stable condition. He should follow up with his PCP in 1-2 weeks. This patient was seen by Dao Cortes PA-C under the supervision of Dr. Kiran. [] Patient Problems: Active and Suspected Problems Exertional dyspnea (Acute) PVC (premature ventricular contraction) (Acute) - Physical Exam Vitals/I&O's: Vital Signs Temp Pulse Resp BP Pulse Ox 98.7 F 73 16 130/80 H 95 01/06/20 12:05 01/06/20 12:05 01/06/20 12:05 01/06/20 12:05 01/06/20 12:05 Oxygen Delivery Method Room Air Weight: 266 lb 15.677 oz Body Mass Index (BMI) 36.2 Intake and Output for Last 24 Hours 01/04/20 01/05/20 01/06/20 23:59 23:59 23:59 Intake Total 650 / 650 220 / 220 Output Total 1150 / 1150 750 / 750 Balance -500 / -500 -530 / -530 General: Alert, Oriented x3, Cooperative HEENT: Atraumatic, PERRLA, EOMI, Normocephalic Neck: Supple, No JVD, Negative Carotid Bruits Lungs: Clear to auscultation, Normal air movement Cardiovascular: Regular rate, No murmurs Abdomen: Bowel Sounds Present, Soft, Non Tender Extremities: No edema, Capillary Refill Less than 3 Seconds Skin: No rashes, No breakdown Musculoskeletal: No Tenderness to Palpation of Joints or Extremities Neurological: Cranial nerves II-XII grossly intact Psych/Mental Status: Normal Affect, Appropriate, Alert and oriented to time, place, person, mood and affect Laboratory Results 01/05/20 16:25: Troponin I < 0.015 01/05/20 17:16: POC Glucose 247 H 01/05/20 21:22: POC Glucose 255 H 01/06/20 06:34: POC Glucose 213 H 01/06/20 11:42: POC Glucose 311 H Current Medications Acetaminophen (Tylenol) 650 mg PO Q6H PRN PRN PRN Reason: Pain Score 1-10/Temp > 100.7 F Apixaban (Eliquis) 5 mg PO BID [facility] Last Admin: 01/06/20 14:56 Dose: 5 mg Documented by: Aspirin (Ecotrin) 81 mg PO DAILY@0800 [facility] Last Admin: 01/06/20 06:35 Dose: 81 mg Documented by: Atorvastatin Calcium (Lipitor) 5 mg PO QHS [facility] Last Admin: 01/05/20 21:17 Dose: 5 mg Documented by: Dextrose (D50w Syringe) 0 gm IV X1 PRN; Protocol PRN Reason: Hypoglycemia Diltiazem HCl (Cardizem Cd) 240 mg PO DAILY [facility] Last Admin: 01/06/20 10:52 Dose: 240 mg Documented by: Glucagon () 1 mg IM .X1 PRN PRN Reason: Hypoglycemia Sodium Chloride () 250 mls @ 15 mls/hr IV .[id number] PRN PRN Reason: Saline Flush Sodium Chloride () 250 mls @ 15 mls/hr IV .[id number] PRN PRN Reason: Additional IVPB Infusion Insulin Human Lispro (Humalog Kwikpen (Bkc)) 0 unit SC TIDAC [facility]; Protocol Last Admin: 01/06/20 11:59 Dose: 5 units Documented by: Lisinopril (Zestril) 20 mg PO DAILY [facility] Last Admin: 01/06/20 06:35 Dose: 20 mg Documented by: [facility] Last Admin: 01/06/20 10:51 Dose: 500 mg Documented by: Nitroglycerin (Nitrostat) 0.4 mg SUBLINGUAL Q5M PRN PRN Reason: CARDIAC/CHEST PAIN Ondansetron HCl (Zofran) 4 mg IV Q8H PRN PRN PRN Reason: NAUSEA/VOMITING Oxycodone HCl (Oxyir) 5 mg PO Q4H PRN PRN PRN Reason: Pain Score 4-5/10 Oxycodone HCl (Oxyir) 10 mg PO Q4H PRN PRN PRN Reason: Pain Score 6-10/10 Sodium Chloride () 10 - 40 ml IV UD PRN PRN Reason: SALINE FLUSH Last Admin: 01/06/20 06:47 Dose: 10 ml Documented by: Discharge Diet: Low fat/ Low Cholesterol, 2000 mg Sodium Diet Discharge Activity: Return to Normal Activity Home Medications: Medications to take at Discharge Lisinopril 20 mg PO DAILY 09/20/15 Diltiazem CD [Cardizem CD] 240 mg PO DAILY #30 cap 09/01/17 Apixaban [Eliquis] 5 mg PO BID 01/05/20 Aspirin E.C. [Ecotrin] 81 mg PO DAILY@0800 01/05/20 Lovastatin 20 mg PO DAILY 01/05/20 Metformin HCl 500 mg PO TID 01/05/20 Metoprolol Tartrate 25 mg PO BID #60 tab 01/06/20 Following Prescriptions Were Given to Patient: Metoprolol Tartrate 25 mg PO BID #60 tab Transmission Status: Pending to [facility]pharmacy #[id number] Primary Care Physician: Blayne Haynes MD [Primary Care Provider] - Please follow up with your Primary Care Physician in: 1-2 weeks Please Follow Up With: Jaclyn Gill MD When: 3 weeks Disposition: Home Minutes spent on discharge:: 35 Patient Condition:: Stable Medical Necessity - Tobacco Use Smoking Status: Never smoker Meaningful Use Info Meaningful Use Diagnoses (Choose all that apply): None applicable
== END 2020-01-06 15:26 | disposition home or self-care (01) ==
LOC: ED 11:11 → PCU 12:10
PROVIDERS: Emergency Provider Emergency Medicine; PCP Family Medicine
DX: I48.0 Paroxysmal atrial fibrillation (principal); I49.3 Ventricular premature depolarization; R06.09 Other forms of dyspnea; I10 Essential (primary) hypertension; I47.2 Ventricular tachycardia; K21.9 Gastro-esophageal reflux disease without esophagitis; G47.33 Obstructive sleep apnea (adult) (pediatric); Z79.899 Other long term (current) drug therapy; Z79.82 Long term (current) use of aspirin; Z79.01 Long term (current) use of anticoagulants; Z86.73 Personal history of transient ischemic attack (TIA), and cerebral infarction without residual deficits; G81.90 Hemiplegia, unspecified affecting unspecified side; E11.65 Type 2 diabetes mellitus with hyperglycemia; Z79.84 Long term (current) use of oral hypoglycemic drugs; Z82.49 Family history of ischemic heart disease and other diseases of the circulatory system; Z66 Do not resuscitate
CPT/HCPCS: 36415; 71045; 78452; 80048; 82962; 83036; 83735; 84484; 85025; 85610; 85730; 93005; 93017; 99218; 99285; A9500; A4216; G0378; J2785

== ENCOUNTER 2020-02-17 13:36 | Observation (INO) | payer MEDICARE, SELFPAY ==
[2020-02-01 10:19] VITALS: BMI 37.4
[2020-02-17] VITALS (11 sets, daily range): BP systolic 91–111; BP diastolic 48–93; PULSE 54–89; RESP 17–32; TEMP 36.3–39.2; O2SAT 95–99; BMI 35.5; BMI 36.1
--- NOTE | 2020-02-17 13:47 | EKG12_ITS ---
Test Reason : V-TACH Blood Pressure : / mmHG Vent. Rate : 096 BPM Atrial Rate : 074 BPM P-R Int : 000 ms QRS Dur : 140 ms QT Int : 372 ms P-R-T Axes : 000 089 -78 degrees QTc Int : 469 ms Sinus Rhythm with NSVT Non-specific intra-ventricular conduction block Abnormal ECG Confirmed by BASSAM SCHREIBER, EMILY ([id number]), editor news RAISSA MARAVILLA ([id number]) on 02/21/2020 1:13:39 PM Referred By: JONE/SARA Confirmed By:PEYTON BANEGAS MD
--- NOTE | 2020-02-17 14:08 | ED.VIS.GEN ---
History of Present Illness Chief Complaint: Shortness of Breath Informant: Patient Onset: Days Context: Gradual Onset Timing: Continuous Current Severity: Moderate Maximum Severity: Moderate Narrative: Patient is a 60-year-old male with medical history significant for hypertension, paroxysmal atrial fibrillation, who presents to the emergency department at direction of his surgical assistant. The patient was recently admitted for palpitations. He has been on a 30-day event monitor since the sixth of this month. He was called because he has been having frequent runs of V. tach. There was one where he had a 24-second run. Patient really denies any symptoms. He states he is mostly concerned because he is had a scant cough and low-grade fever. His was recently tested for Covid, but they do not have the results. He did recently have Coreg started. He is also on Eliquis. He does have history of prior stroke. He was sent in at the direction of his surgical assistant. Prior similar symptoms: Yes Recent Illness/Hospitalization: Yes Past Medical History - Allergies and Home Meds Allergies/Adverse Reactions: Allergies No Known Allergies Allergy (Verified 02/17/20 13:37) Primary Care Physician: Blayne Haynes MD [Primary Care Provider] - Prior records reviewed: Yes Past Medical History: - - A. fib, hypertension, hyperlipidemia, prior stroke Surgical History: noncontributory Smoking Status: Never smoker - Family History Paternal Family History: Family History (Last Reviewed 02/01/20 @ 11:[address] Jaclyn Gill MD) Father Heart disease Myocardial infarction Family History: Reports: Heart Disease Review of Systems General: Reports: Fever, Malaise. Denies: Chills, Sweats Eyes: Denies: Visual changes - bilaterally, Diplopia ENT: Denies: Rhinorrhea, Sore throat Cardiovascular: Reports: Palpitations. Denies: Chest pain Respiratory: Reports: Cough. Denies: Dyspnea, Dyspnea on exertion Gastrointestinal: Denies: Abdominal pain, Nausea, Vomiting, Diarrhea, Melena, Hematochezia Genitourinary: Denies: Dysuria, Hematuria, Frequency Musculoskeletal: Denies: Back pain, Extremity Pain Skin: Denies: Rash, Wounds Neurological: Denies: Headache, Weakness, Numbness Physical Exam Vital Signs/Narrative: Vital Signs Temp Pulse Resp BP Pulse Ox 02/17/20 13:37 97.3 F L 54 L 17 109/49 L 97 Inital Vital Signs reviewed: Yes General: Well nourished, Well developed, No Acute Distress Head: Normocephalic, Atraumatic Eyes: Perrl, EOMI ENT: Moist mucous membranes, No rhinorrhea Neck: Supple, Nontender Cardiovascular: No murmurs, Irregular, Tachycardia Respiratory: No distress, Chest nontender, Diminished Abdomen: Soft, Nontender, Nondistended, Normal bowel sounds Back: Nontender, Normal Inspection Extremities: Nontender, No edema Skin: Normal color, No rash Neurological: Alert, Oriented x3, Cranial nerves II-XII grossly intact, Normal Strength, Normal Sensation Psychological: Normal affect, Normal Mood Diagnostic/Tx/Re-eval Clinical Impression(s) from Imaging Studies Chest X-Ray 02/17/20 14:15 IMPRESSION: Hyperinflation. The lungs are clear. Electronically Signed: Horace Alvarezmignon, at 14:49 EST , Service support , Abnormal Lab Results 02/17/20 02/17/20 02/17/20 13:57 14:00 14:00 WBC 8.9 RBC 5.30 Hgb 15.1 Hct 46.9 MCV 88.5 MCH 28.5 MCHC 32.2 RDW Std Deviation 41.1 RDW Coeff of [place] 12.7 Plt Count 241 MPV 9.4 Immature Gran % (Auto) 0.300 Neut % (Auto) 64.7 Lymph % (Auto) 13.2 L [place] % (Auto) 21.4 H Eos % (Auto) 0.1 Baso % (Auto) 0.3 Absolute Neuts (auto) 5.7 Absolute Lymphs (auto) 1.17 Nucleated RBC % 0 Differential Comment SCANNED PT 15.3 H INR 1.3 Sodium Potassium Chloride Carbon Dioxide Anion Gap BUN Creatinine Estim Creat Clear Calc Est GFR (MDRD) Af Amer Est GFR (MDRD) Non-Af BUN/Creatinine Ratio Glucose Calcium Magnesium Total Bilirubin AST ALT Alkaline Phosphatase Troponin I Total Protein Albumin Globulin Albumin/Globulin Ratio COVID-19 (KEKE) Positive 02/17/20 14:00 WBC RBC Hgb Hct MCV MCH MCHC RDW Std Deviation RDW Coeff of [place] Plt Count MPV Immature Gran % (Auto) Neut % (Auto) Lymph % (Auto) [place] % (Auto) Eos % (Auto) Baso % (Auto) Absolute Neuts (auto) Absolute Lymphs (auto) Nucleated RBC % Differential Comment PT INR Sodium 134 L Potassium 3.9 Chloride 102 Carbon Dioxide 23.0 Anion Gap 9 BUN 14 Creatinine 1.16 Estim Creat Clear Calc 72.47 Est GFR (MDRD) Af Amer 82 Est GFR (MDRD) Non-Af 68 BUN/Creatinine Ratio 12.1 Glucose 158 H Calcium 8.8 Magnesium 2.1 Total Bilirubin 0.30 AST 47 H ALT 65 H Alkaline Phosphatase 76 Troponin I < 0.015 Total Protein 7.8 Albumin 4.0 Globulin 3.8 Albumin/Globulin Ratio 1.1 COVID-19 (KEKE) - Rhythm Strip Rhythm Strip: Sinus Rhythm Rate: 70 Ectopy: PVC(s) - EKG Initial EKG Interpretation: Atrial Fibrillation, LBBB, Non-Specific ST Changes Prior: Changed - Medical Decision Making The patient presents at the referral from his surgical assistant. He was recently hospitalized with palpitations. He had a Holter monitor placed and has been having runs of ventricular tachycardia. On arrival, EKG was done. It does appear as if he has a rate dependent bundle branch. He was not significantly tachycardic, but does have 3 separate complexes on his EKG. I did discuss this with Dr. Gill he did confirm from his Holter that he was having some runs of nonsustained V. tach. We did discuss amiodarone, but as the patient's heart rate has been in the 70s, he wants to hold. Metabolic work-up was pursued and was unremarkable. The patient did have a fever. Covid was positive. At this point, given multiple runs of ventricular tachycardia, the patient will be admitted. Impression 1. Nonsustained V. tach 2. Covid ED Disposition - Plan for ED Patient: Referrals: Blayne Haynes MD [Primary Care Provider] -
--- NOTE | 2020-02-17 14:15 | RAD_ITS ---
STUDY: X-RAY CHEST REASON FOR EXAM: Male, 60 years old. FEVER, COUGH, SOB AND MULTIPLE RUNS OF VTACH ON 30 DAY MONITOR TECHNIQUE: Single AP portable view of the chest. COMPARISON: Comparison is made with prior study dated 01/05/2020. FINDINGS: EKG electrodes are seen. A loop recording device is seen overlying the mid chest. Hyperinflation. The lungs are clear. There is no demonstrated pleural abnormality. Normal size heart. Normal mediastinum and inocente. Normal visualized pulmonary arteries. There is atherosclerotic tortuosity of the aortic arch and descending thoracic aorta. Normal visualized thoracic spine. Normal visualized ribs, clavicles, and shoulders. There is no demonstrated abnormality of the visualized soft tissue structures of the upper abdomen. RAD/Chest 1 View (Portable) IMPRESSION: Hyperinflation. The lungs are clear. Electronically Signed: Horace Bethea, at 14:49 EST , Service support ,
[2020-02-17 14:18] LABS: Absolute Lymphocyte Count 1.17 X10^3/uL (0.83-4.51); Absolute Neutrophil Count 5.7 X10^3/uL (2.0-7.7); Basophil# 0.03 X10^3/uL; Basophil% 0.3 % (0-1); Eosinophil# 0.01 X10^3/uL; Eosinophils% 0.1 % (0-5); Hematocrit 46.9 % (40-54); Hemoglobin 15.1 g/dL (13.0-16.5); Lymphocyte # 1.17 X10^3/ul (4.0); Lymphocyte % 13.2 % (19-41); Mean Corp Hgb Conc 32.2 g/dL (32-36); Mean Corpuscular Hgb 28.5 pg (27.0-32.0); Mean Corpuscular Volume 88.5 fL (80-94); Mean Platelet Vol. 9.4 fl (6.2-12.0); Monocyte% 21.4 % (0-10); NRBC Flagged by Analyzer 0 % (0-5); Neutrophil # 5.74 X10^3/uL (2.7-7.7); Neutrophil % 64.7 % (47-70); POSITIVE DIFFERENTIAL YES; Platelet Count 241 K/mm3 (150-450); RBC Distribution Width CV 12.7 % (11.6-14.6); RBC Distribution Width SD 41.1 fl (35.1-43.9); White Blood Count 8.9 K/mm3 (4.4-11.0)
[2020-02-17 14:24] LABS: Differential Indicated SCAN CRITERIA MET
[2020-02-17 14:27] LABS: International Normalized Ratio 1.3; Prothrombin Time (Protime)PT. 15.3 SECONDS (11.7-14.9)
[2020-02-17 14:36] LABS: ALB/GLOB Ratio 1.1 RATIO (0.9-2.4); AST(SGOT) 47 U/L (15-37); Alanine Aminotransfer ALT/SGPT 65 U/L (16-61); Alkaline Phosphatase 76 U/L (45-117); Anion Gap 9 (5-15); BUN 14 mg/dL (7-18); BUN/Creat Ratio 12.1 RATIO (10-20); Calcium,Total 8.8 mg/dL (8.5-10.1); Chloride 102 mmol/L (98-107); Creatinine, Serum 1.16 mg/dL (0.70-1.30); EST Glomerular Filtration Rate 68 mL/min (>60); Est Glom Filt Rate - Afr Amer 82 mL/min (>60); Estimated Creatinine Clearance 72.47 ml/min; Globulin 3.8 g/dL (2.2-4.2); Glucose 158 mg/dL (74-106); Magnesium 2.1 mg/dL (1.6-2.6); Potassium 3.9 mmol/L (3.5-5.1); Protein, Total 7.8 g/dL (6.4-8.2); Sodium Level 134 mmol/L (136-145)
[2020-02-17 14:38] LABS: Differential Comment SCANNED
[2020-02-17] MEDS: Acetaminophen 500 MG Tablet 1000 MG PO (15:43)
--- NOTE | 2020-02-17 16:48 | NURSING ---
MS2 ISAIAH COLON, ASUNCION
--- NOTE | 2020-02-17 17:06 | HP.PCM_ITS ---
Problem List (1) PVC (premature ventricular contraction) Status: Acute (2) COVID-19 Status: Acute (3) H/O ischemic right MCA stroke Status: Resolved (4) Hyperlipidemia Status: Chronic (5) Type 2 diabetes mellitus without complication Status: Chronic (6) VIRGIL on CPAP Status: Chronic Comment: Does not use (7) Paroxysmal atrial fibrillation Status: Chronic (8) Gastroesophageal reflux disease Status: Chronic (9) Essential hypertension Status: Chronic History of Present Illness Date of Admission: 02/17/20 Chief Complaint: abnormal heart rhythm The patient is a 60 year old M with pmhx of CVA with residual right UE weakness, paroxysmal Afib, PVCs, DMt2, HTN, VIRGIL, who presents to the ER after being sent by his territory sales consultant Dr. Gill for nonsustained vtach picked up on his shelter monitor. He was recently admitted in the PCU discharged 01/06/20 with exertional dyspnea and palpitations. He had a negative stress test, was placed on a beta debby for NSVT, and discharged for follow up care with cardiology at which point he had a heart monitor placed. He has had intermittent palpitations since then, altho denies any today. Also he has not been having chest pain. He has been sick for about two days. His became sick with cough and sneezing 3 days ago. Two days ago he started to have cough, sputum production, SOB, fevers. Today he was told to come to the ER for the arrhythmia. I the ER he tested positive for COVID 19 . Fortunately he is not requiring o2 to maintain adequate sats during our interview and while conversing, and CXR does not show pna. [] Past Medical History Past Medical History (Chronic Problems): Chronic Problems (Last Reviewed 02/01/20 @ 11:[address] Jaclyn Gill MD) Hyperlipidemia (Chronic) Type 2 diabetes mellitus without complication (Chronic) VIRGIL on CPAP (Chronic) Does not use Paroxysmal atrial fibrillation (Chronic) Hemiparesis (Chronic) Gastroesophageal reflux disease (Chronic) Essential hypertension (Chronic) Medical History: Medical History (Last Reviewed 02/01/20 @ 11:[address] 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 [Ecotrin] 81 mg PO DAILY@0800 01/05/20 Lovastatin 20 mg PO DAILY 01/05/20 metformin 500 mg tablet 1,000 mg PO BID tab 02/01/20 Apixaban [Eliquis] 5 mg PO BID 02/17/20 Carvedilol 12.5 mg PO BID 02/17/20 Diltiazem CD [Cardizem CD] 240 mg PO DAILY 02/17/20 Lisinopril 20 mg PO DAILY 02/17/20 Surgical History: Surgical History (Last Reviewed 02/01/20 @ 11:[address] Jaclyn Gill MD) History of YAG laser capsulotomy of lens of right eye Z98.41 History of left inguinal hernia repair Z98.890, Z87.19 History of vitrectomy Z98.890 Surgical History: noncontributory Psychiatric History: No pertinent psych hx Lives: Spouse/ Significant Other Smoking Status: Never smoker Tobacco Use: Non-smoker Alcohol: None Drugs: None - *Family History Paternal Family History: Family History (Last Reviewed 02/17/20 @ 17:16 by TYLER Celis) Father Heart disease Myocardial infarction History Items: Heart Disease Review of Systems Constitutional: Reports: Chills, Fever. Denies: Weight Change HEENT: Denies: Head Aches, Sinus Congestion, Sinus Drainage Cardiovascular: Reports: Palpitations. Denies: Chest Pain, Chest Pressure, Edema, Heaviness Respiratory: Reports: Cough, Shortness of Breath, Shortness of breath at rest, Shortness of breath upon exertion, Sputum production. Denies: Hemoptysis Gastrointestinal: Denies: Abdominal Pain, Diarrhea, Nausea, Vomiting Genitourinary: Denies: Dysuria, Hesitancy, Urgency Musculoskeletal: Denies: Joint Pain, Joint Tenderness, Muscle pain Skin: Denies: Lesions, Rash, Wounds Neurological: Denies: Numbness, Tingling, Focal weakness Psychiatric: Denies: Anxiety, Depression, Homicidal Ideations, Suicidal Ideations Hematologic/ Lymphatic: Denies: Easy Bruising, Easy Bleeding VTE Information - Inpt Only VTE Present on Admission: No VTE Mechan Device Prophylaxis: None VTE Pharm Prophylaxis ordered?: Yes - Physical Exam Vitals/I&O's: Vital Signs Temp Pulse Resp BP Pulse Ox 102.5 F H 71 24 H 91/48 L 95 02/17/20 15:36 02/17/20 16:00 02/17/20 16:00 02/17/20 16:00 02/17/20 16:00 Oxygen Flow Rate (L/min) 2 Oxygen Delivery Method Nasal Cannula Weight: 262 lb Body Mass Index (BMI) 35.5 General: Alert, Oriented x3, Cooperative HEENT: Atraumatic, PERRLA, EOMI, Normocephalic Neck: Supple, No JVD, Negative Carotid Bruits Lungs: Clear to auscultation, Normal air movement Cardiovascular: No murmurs, Irregular Rate Abdomen: Bowel Sounds Present, Soft, Non Tender, Obese Extremities: No edema, Capillary Refill Less than 3 Seconds Skin: No rashes, No breakdown Musculoskeletal: No Tenderness to Palpation of Joints or Extremities Neurological: Cranial nerves II-XII grossly intact Psych/Mental Status: Normal Affect, Appropriate, Alert and oriented to time, place, person, mood and affect Laboratory Results 02/17/20 13:57: COVID-19 (KEKE) Positive 02/17/20 14:00: WBC 8.9, RBC 5.30, Hgb 15.1, Hct 46.9, MCV 88.5, MCH 28.5, MCHC 32.2, RDW Std Deviation 41.1, RDW Coeff of [place] 12.7, Plt Count 241, MPV 9.4, Immature Gran % (Auto) 0.300, Neut % (Auto) 64.7, Lymph % (Auto) 13.2 L, [place] % (Auto) 21.4 H, Eos % (Auto) 0.1, Baso % (Auto) 0.3, Absolute Neuts (auto) 5.7, Absolute Lymphs (auto) 1.17, Nucleated RBC % 0, Differential Comment SCANNED 02/17/20 14:00: PT 15.3 H, INR 1.3 02/17/20 14:00: Sodium 134 L, Potassium 3.9, Chloride 102, Carbon Dioxide 23.0, Anion Gap 9, BUN 14, Creatinine 1.16, Estim Creat Clear Calc 72.47, Est GFR (MDRD) Af Amer 82, Est GFR (MDRD) Non-Af 68, BUN/Creatinine Ratio 12.1, Glucose 158 H, Calcium 8.8, Magnesium 2.1, Total Bilirubin 0.30, AST 47 H, ALT 65 H, Alkaline Phosphatase 76, Troponin I < 0.015, Total Protein 7.8, Albumin 4.0, Globulin 3.8, Albumin/Globulin Ratio 1.1 Assessment/Plan All Active Problems (Last Reviewed 02/01/20 @ 11:[address] Jaclyn Gill MD) COVID-19 (Acute) NSVT (nonsustained ventricular tachycardia) (Resolved) H/O ischemic right MCA stroke (Resolved ~2011) Exertional dyspnea (Resolved) PVC (premature ventricular contraction) (Acute) 1. NSVT - detected on home monitor, sent to ER by his territory sales consultant Dr. Gill. He has a hx of this for which he takes metoprolol. Will continue. Consult cardiology. Unclear if this worsening of palpitations is due to acute illness as he currently has Covid 19. Troponin is negative. 2. Covid 19 - initiate steroids and supportive care. CXR without consolidation. No leukocytosis, there is lymphopenia and fever tmax 102.5. No hypoxia at this time. 3. pAfib - metoprolol, cardizem, eliquis 4. Hx CVA with chronic RUE weakness 5. VIRGIL - CPAP qhs 6. HTN - borderline low, will trend. 7. DMt2 with obesity - hold metformin, start SSI. 8. HLD - statin DVT ppx: eliquis This patient was seen by Dao Cortes PA-C under the supervision of Dr. Kiran.
[2020-02-17] MEDS: dexAMETHasone 4 MG Tablet 6 MG PO (17:42)
[2020-02-17 18:16] LABS: D-Dimer Quantitative (DVT/PE) 0.29 FEU/ug/m (0.27-0.49)
[2020-02-17] MEDS: Atorvastatin Calcium 10 MG Tablet 5 MG PO (22:03)
[2020-02-17] MEDS: Carvedilol 12.5 MG Tablet PO (22:04)
[2020-02-17] MEDS: Enoxaparin 30 MG/0.3 ML Syringe SC (22:04)
[2020-02-18] VITALS (7 sets, daily range): BP systolic 112–138; BP diastolic 72–85; PULSE 62–73; RESP 16–18; TEMP 36.6–36.8; O2SAT 97–98
[2020-02-18 06:44] LABS: Thyroid Stim Hormone (TSH) 0.32 uIU/mL (0.358-3.74)
[2020-02-18] MEDS: dilTIAZem CD 240 MG Capsule PO (09:21)
[2020-02-18] MEDS: Enoxaparin 30 MG/0.3 ML Syringe SC ×2 (09:21→23:32)
[2020-02-18] MEDS: Lisinopril 20 MG Tablet PO (09:21)
[2020-02-18] MEDS: dexAMETHasone 4 MG Tablet 6 MG PO (09:22)
[2020-02-18] MEDS: Carvedilol 12.5 MG Tablet PO ×2 (09:22→23:32)
[2020-02-18] MEDS: metFORMIN HCl 500 MG Tablet 1000 MG PO ×2 (09:22→16:40)
--- NOTE | 2020-02-18 10:41 | PCM.PN.HOSP ---
Patient Problems: Active and Suspected Problems (Last Reviewed 02/01/20 @ 11:[address] Jaclyn Gill MD) COVID-19 (Acute) PVC (premature ventricular contraction) (Acute) Subjective: Doing well, no further palpitations denies any lightheadedness. He is 97% on room air Vitals/I&O's: Vital Signs Temp Pulse Resp BP Pulse Ox 98.2 F 68 16 138/85 H 97 02/18/20 09:15 02/18/20 09:15 02/18/20 09:15 02/18/20 09:15 02/18/20 09:15 Oxygen Flow Rate (L/min) 2 Oxygen Delivery Method Room Air Weight: 266 lb Body Mass Index (BMI) 36.1 Intake and Output for Last 24 Hours 02/16/20 02/17/20 02/18/20 23:59 23:59 23:59 Intake Total 240 / 240 480 / 480 Output Total 350 / 350 600 / 600 Balance -110 / -110 -120 / -120 General: Alert, Oriented x3, Cooperative, No apparent distress HEENT: Atraumatic, PERRLA, EOMI, Normocephalic Oral: Moist Mucosa Neck: Supple, No JVD Lungs: Clear to auscultation, Normal air movement, No rhonchi, No wheeze, No rales, Diminished Abdomen: Soft, Non Tender, Non-Distended, No Hepato-splenomegaly Extremities: No edema, Capillary Refill Less than 3 Seconds Skin: No rashes, No breakdown Neurological: Neuro grossly intact, Sensory exam intact to light touch and pain Psych/Mental Status: Normal Affect, Appropriate Laboratory Results 02/17/20 13:57: COVID-19 (KE[facility]) Positive 02/17/20 14:00: WBC 8.9, RBC 5.30, Hgb 15.1, Hct 46.9, MCV 88.5, MCH 28.5, MCHC 32.2, RDW Std Deviation 41.1, RDW Coeff of [place] 12.7, Plt Count 241, MPV 9.4, Immature Gran % (Auto) 0.300, Neut % (Auto) 64.7, Lymph % (Auto) 13.2 L, [place] % (Auto) 21.4 H, Eos % (Auto) 0.1, Baso % (Auto) 0.3, Absolute Neuts (auto) 5.7, Absolute Lymphs (auto) 1.17, Nucleated RBC % 0, Differential Comment SCANNED 02/17/20 14:00: PT 15.3 H, INR 1.3 02/17/20 14:00: Sodium 134 L, Potassium 3.9, Chloride 102, Carbon Dioxide 23.0, Anion Gap 9, BUN 14, Creatinine 1.16, Estim Creat Clear Calc 72.47, Est GFR (MDRD) Af Amer 82, Est GFR (MDRD) Non-Af 68, BUN/Creatinine Ratio 12.1, Glucose 158 H, Calcium 8.8, Magnesium 2.1, Total Bilirubin 0.30, AST 47 H, ALT 65 H, Alkaline Phosphatase 76, Troponin I < 0.015, Total Protein 7.8, Albumin 4.0, Globulin 3.8, Albumin/Globulin Ratio 1.1 02/17/20 14:00: D-Dimer Quant (PE/DVT) 0.29 02/17/20 18:28: Troponin I < 0.015 02/17/20 20:15: Troponin I < 0.015 02/18/20 05:10: TSH 0.32 L Current Medications Acetaminophen (Acetaminophen 325 Mg Tablet) 650 mg PO Q6H PRN PRN PRN Reason: Pain Score 1-10/Temp > 100.7 F Aspirin (Aspirin E.C. 81 Mg Tablet) 81 mg PO DAILY@0800 [facility] Atorvastatin Calcium (Atorvastatin Calcium 10 Mg Tablet) 5 mg PO QHS [facility] Last Admin: 02/17/20 22:03 Dose: 5 mg Documented by: Carvedilol (Carvedilol 12.5 Mg Tablet) 12.5 mg PO BID [facility] Last Admin: 02/18/20 09:22 Dose: 12.5 mg Documented by: Dexamethasone (Dexamethasone 4 Mg Tablet) 6 mg PO DAILY [facility] Last Admin: 02/18/20 09:22 Dose: 6 mg Documented by: Diltiazem HCl (Diltiazem Cd 240 Mg Capsule) 240 mg PO DAILY [facility] Last Admin: 02/18/20 09:21 Dose: 240 mg Documented by: Enoxaparin Sodium (Enoxaparin 30 Mg/0.3 Ml Syringe) 30 mg SC BID [facility] Last Admin: 02/18/20 09:21 Dose: 30 mg Documented by: Sodium Chloride () 250 mls @ 15 mls/hr IV .[id number] PRN PRN Reason: Saline Flush Sodium Chloride () 250 mls @ 15 mls/hr IV .[id number] PRN PRN Reason: Additional IVPB Infusion Lisinopril (Lisinopril 20 Mg Tablet) 20 mg PO DAILY [facility] Last Admin: 02/18/20 09:21 Dose: 20 mg Documented by: Metformin HCl (Metformin Hcl 500 Mg Tablet) 1,000 mg PO BIDCM [facility] Last Admin: 02/18/20 09:22 Dose: 1,000 mg Documented by: Ondansetron HCl (Ondansetron 4 Mg/2 Ml Vial) 4 mg IV Q8H PRN PRN PRN Reason: NAUSEA/VOMITING Sodium Chloride (0.9% Saline Lock 10 Ml Syringe) 10 - 40 ml IV UD PRN PRN Reason: SALINE FLUSH STROKE Vital Signs/Narrative: Vital Signs Temp Pulse Resp BP Pulse Ox 02/18/20 09:15 98.2 F 68 16 138/85 H 97 Medical Necessity - Tobacco Use Smoking Status: Never smoker Tobacco Use: Non-smoker Assessment/Plan All Active Problems (Last Reviewed 02/01/20 @ 11:[address] Jaclyn Gill MD) COVID-19 (Acute) NSVT (nonsustained ventricular tachycardia) (Resolved) H/O ischemic right MCA stroke (Resolved ~2011) Exertional dyspnea (Resolved) PVC (premature ventricular contraction) (Acute) 1. Nonsustained V. tach/paroxysmal A. fib/HTN/HLD -Appreciate cardiology assistance for medication management -Was negative -Continue with metoprolol, Cardizem -Continue with Eliquis -Continue with lovastatin 2. COVID-19 -Continue with Decadron, no leukocytosis however there is a lymphopenia and he recently did become sick -He is not hypoxic and does not require oxygen at this time 3. DM 2 -Continue with his Metformin and monitor his blood sugars. Accu-Cheks AC at bedtime -Continue with sliding scale insulin DVT: Eliquis OBSV E&M: 45149 Subsequent observation care L2
--- NOTE | 2020-02-18 13:02 | CASEMGMT ---
Addendum entered by Ramsey Ponce 02/18/20 15:06: Patient states he is independent at home, no care needs identified. DC PLAN: Home on discharge. Original Note: Intro role of CM to patient via phone and [facility] form explained re: Observation status for treatment of rapid heart rate and covid-19. Explained hospitalization will be paid per? insurance policy for Outpatient billing?and condition will continue to be evaluated for Inpt necessity. Also let pt know that [facility] sends paper in the billing packet with their phone number if questions arise. Discussed Pharmacy section of [facility] form and self administered medication guideline.? Pt verbalizes understanding and does not have further questions. Telephone consent signed on form and placed in chart, copy to pt. MELITON PERALES BSN CM
--- NOTE | 2020-02-18 14:57 | PCM.CONS.C ---
Reason for Consult Reason for Consultation: nsvt History of Present Illness: 60-year-old male with past medical history of paroxysmal atrial fibrillation, hypertension, dyslipidemia, sleep apnea, diabetes, CVA, nonsustained V. tach that was recently found when he was admitted to the hospital with palpitations was referred to our office for the palpitations. Event monitor was ordered. This revealed a 24-second run of nonsustained V. tach and additional runs of nonsustained V. tach. Patient has palpitations with this. He has not had any syncope or dizziness. He denies any chest pain. He had a stress test which was negative for ischemia. Because of long runs of nonsustained V. tach we recommended coronary angiography. However patient had symptoms that were suspicious for Covid and we advised him to come to the emergency room. His Covid test has come out positive. Patient was admitted to the hospital last night. Overnight he has not had any nonsustained V. tach on telemetry. Past Medical History Allergies/Adverse Reactions: Allergies No Known Allergies Allergy (Verified 02/17/20 13:37) Home Medications: Ambulatory Orders Medication Instructions Recorded Aspirin E.C. [Ecotrin] 81 mg PO DAILY@0800 01/05/20 Lovastatin 20 mg PO DAILY 01/05/20 metformin 500 mg tablet 1,000 mg PO BID tab 02/01/20 Apixaban [Eliquis] 5 mg PO BID 02/17/20 Carvedilol 12.5 mg PO BID 02/17/20 Diltiazem CD [Cardizem CD] 240 mg PO DAILY 02/17/20 Lisinopril 20 mg PO DAILY 02/17/20 Past Medical History (Chronic Problems): Chronic Problems (Last Reviewed 02/01/20 @ 11:[address] Jaclyn Gill MD) Hyperlipidemia (Chronic) Type 2 diabetes mellitus without complication (Chronic) VIRGIL on CPAP (Chronic) Does not use Paroxysmal atrial fibrillation (Chronic) Hemiparesis (Chronic) Gastroesophageal reflux disease (Chronic) Essential hypertension (Chronic) Surgical History: noncontributory Psychiatric History: No pertinent psych hx - *Family History Paternal Family History: Family History (Last Reviewed 02/17/20 @ 17:16 by TYLER Celis) Father Heart disease Myocardial infarction History Items: Heart Disease Lives: Spouse/ Significant Other Smoking Status: Never smoker Tobacco Use: Non-smoker Alcohol: None Drugs: None Subjectve: Patient was interviewed over the phone and physical examination was not performed due to Covid. Objective: Vital Signs Temp Pulse Resp BP Pulse Ox 98.2 F 68 16 138/85 H 97 02/18/20 09:15 02/18/20 09:15 02/18/20 09:15 02/18/20 09:15 02/18/20 09:15 Oxygen Flow Rate (L/min) 2 Oxygen Delivery Method Room Air Weight: 266 lb Body Mass Index (BMI) 36.1 Intake and Output for Last 24 Hours 02/16/20 02/17/20 02/18/20 23:59 23:59 23:59 Intake Total 240 / 240 480 / 480 Output Total 350 / 350 700 / 700 Balance -110 / -110 -220 / -220 02/17/20 14:00: D-Dimer Quant (PE/DVT) 0.29 02/17/20 18:28: Troponin I < 0.015 02/17/20 20:15: Troponin I < 0.015 Rhythm: EKG: ECHO: Stress Test: Cardiac Cath: PCI: CT Surgery: Holter monitor: EPS: PPM: CXR: Chest CT Scan: Assessment/Plan 1. Nonsustained V. tach: At this time continue beta-debby. If he has further runs of nonsustained V. tach while he is in the hospital we can start amiodarone. Patient does need coronary angiography. At this point it does not have to be done emergently. This can be done after his quarantine perior for Covid and when he tests negative for Covid.
[2020-02-18] MEDS: Atorvastatin Calcium 10 MG Tablet 5 MG PO (23:32)
[2020-02-19 00:01] VITALS: PULSE 62
[2020-02-19 03:11] VITALS: BP 118/64; PULSE 62; RESP 16; TEMP 36.2; O2SAT 96
[2020-02-19 04:00] VITALS: PULSE 58
[2020-02-19 07:00] VITALS: PULSE 62
[2020-02-19 08:39] VITALS: BP 115/80; PULSE 60; RESP 16; TEMP 36.6; O2SAT 98
[2020-02-19] MEDS: metFORMIN HCl 500 MG Tablet 1000 MG PO (09:30)
[2020-02-19] MEDS: Aspirin E.C. 81 MG Tablet PO (09:30)
[2020-02-19] MEDS: dexAMETHasone 4 MG Tablet 6 MG PO (09:31)
[2020-02-19] MEDS: Carvedilol 12.5 MG Tablet PO (09:31)
[2020-02-19] MEDS: dilTIAZem CD 240 MG Capsule PO (09:31)
[2020-02-19] MEDS: Lisinopril 20 MG Tablet PO (09:31)
[2020-02-19] MEDS: Enoxaparin 30 MG/0.3 ML Syringe SC (09:31)
[2020-02-19] MEDS: 0.9% Saline Lock 10 ML Syringe IV (09:35)
--- NOTE | 2020-02-19 09:44 | PCM.DC ---
- Discharge Diagnoses Current Active Problems: Current Active and Chronic Problems (Last Reviewed 02/01/20 @ 11:[address] Jaclyn Gill MD) COVID-19 (Acute) Hyperlipidemia (Chronic) Type 2 diabetes mellitus without complication (Chronic) VIRGIL on CPAP (Chronic) Does not use Paroxysmal atrial fibrillation (Chronic) PVC (premature ventricular contraction) (Acute) Gastroesophageal reflux disease (Chronic) Essential hypertension (Chronic) You will use the following diet at home:: Cardiac Your food should be the consistency of: Regular Your liquids should be the consistency of: Regular/Thin Discharge Activity: Return to Normal Activity Call your doctor if you observe: Fever of 101 or Higher, Shortness of breath, Dizziness, Fainting spells, Swelling in the ankles, Chest pain, Increased palpitations (irregular heartbeat) Allergies/Adverse Reactions: Allergies No Known Allergies Allergy (Verified 02/17/20 13:37) Medications to take at Discharge Aspirin E.C. [Ecotrin] 81 mg PO DAILY@0800 01/05/20 Lovastatin 20 mg PO DAILY 01/05/20 metformin 500 mg tablet 1,000 mg PO BID tab 02/01/20 Apixaban [Eliquis] 5 mg PO BID 02/17/20 Carvedilol 12.5 mg PO BID 02/17/20 Diltiazem CD [Cardizem CD] 240 mg PO DAILY 02/17/20 Lisinopril 20 mg PO DAILY 02/17/20 Dexamethasone [Decadron] 6 mg PO DAILY #12 tab 02/19/20 The following prescriptions were given: Dexamethasone [Decadron] 6 mg PO DAILY #12 tab Transmission Status: Pending to [facility] Primary Care Physician: Blayne Haynes MD [Primary Care Provider] - Please follow up with your Primary Care Physician in: 3-5 days Test Results: Test results from this visit will be discussed in further detail at your follow-up appointment, if applicable. Please Follow Up With: Jaclyn Gill MD When: 2 weeks
[2020-02-19 10:40] LABS: Absolute Lymphocyte Count 1.43 X10^3/uL (0.83-4.51); Absolute Neutrophil Count 7.5 X10^3/uL (2.0-7.7); Basophil# 0.01 X10^3/uL; Basophil% 0.1 % (0-1); Hematocrit 48.3 % (40-54); Hemoglobin 15.4 g/dL (13.0-16.5); Lymphocyte # 1.43 X10^3/ul (4.0); Lymphocyte % 14.1 % (19-41); Mean Corp Hgb Conc 31.9 g/dL (32-36); Mean Corpuscular Hgb 28.1 pg (27.0-32.0); Mean Corpuscular Volume 88.1 fL (80-94); Mean Platelet Vol. 9.9 fl (6.2-12.0); Monocyte% 10.9 % (0-10); NRBC Flagged by Analyzer 0 % (0-5); Neutrophil # 7.54 X10^3/uL (2.7-7.7); Neutrophil % 74.5 % (47-70); Platelet Count 290 K/mm3 (150-450); RBC Distribution Width CV 12.7 % (11.6-14.6); RBC Distribution Width SD 41.2 fl (35.1-43.9); Red Blood Count 5.48 M/mm3 (4.6-6.2); White Blood Count 10.1 K/mm3 (4.4-11.0)
[2020-02-19 10:52] LABS: Free T3 1.2 pg/mL (2.18-3.98); T4 Free Direct 0.86 ng/dL (0.76-1.46)
[2020-02-19 11:06] LABS: Anion Gap 8 (5-15); BUN 21 mg/dL (7-18); BUN/Creat Ratio 24.1 RATIO (10-20); Calcium,Total 9.1 mg/dL (8.5-10.1); Chloride 104 mmol/L (98-107); Creatinine, Serum 0.87 mg/dL (0.70-1.30); EST Glomerular Filtration Rate 95 mL/min (>60); Est Glom Filt Rate - Afr Amer 114 mL/min (>60); Estimated Creatinine Clearance 96.63 ml/min; Glucose 173 mg/dL (74-106); Sodium Level 136 mmol/L (136-145)
[2020-02-19 12:36] LABS: Bedside Glucose 280 mg/dL (70-110)
--- NOTE | 2020-02-19 12:53 | PCM.DC.SUM ---
Discharge Date and Diagnosis - Problem List Patient Problems: Active and Suspected Problems (Last Reviewed 02/01/20 @ 11:[address] Jaclyn Gill MD) COVID-19 (Acute) PVC (premature ventricular contraction) (Acute) Date of Admission: 02/17/20 Date of Discharge: 02/19/20 - Primary Discharge Diagnosis Acute Problems: Active Problems (Last Reviewed 02/01/20 @ 11:[address] Jaclyn Gill MD) COVID-19 (Acute) PVC (premature ventricular contraction) (Acute) - Secondary Discharge Diagnosis Chronic Problems: Chronic Problems (Last Reviewed 02/01/20 @ 11:[address] Jaclyn Gill MD) Hyperlipidemia (Chronic) Type 2 diabetes mellitus without complication (Chronic) VIRGIL on CPAP (Chronic) Does not use Paroxysmal atrial fibrillation (Chronic) Hemiparesis (Chronic) Gastroesophageal reflux disease (Chronic) Essential hypertension (Chronic) Hospital Course and Treatment Imaging Results: Clinical Impression(s) from Imaging Studies Chest X-Ray 02/17/20 14:15 IMPRESSION: Hyperinflation. The lungs are clear. 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 He was recently admitted in the PCU discharged 01/06/20 with exertional dyspnea and palpitations. He had a negative stress test, was placed on a beta debby for NSVT, and discharged for follow up care with cardiology at which point he had a heart monitor placed. He has had intermittent palpitations since then, altho denies any today. Also he has not been having chest pain. He has been sick for about two days. His became sick with cough and sneezing 3 days ago. Two days ago he started to have cough, sputum production, SOB, fevers. Today he was told to come to the ER for the arrhythmia. I the ER he tested positive for COVID 19 . Fortunately he is not requiring o2 to maintain adequate sats during our interview and while conversing, and CXR does not show pna. Hospital Course: 1. Nonsustained V. tach/paroxysmal A. fib/HTN/HLD -Appreciate cardiology assistance for medication management -Stress test in January 2020 was negative -Continue with metoprolol, Cardizem, has not had any signs of ventricular tachycardia while here in the hospital -Continue with Eliquis -Continue with lovastatin -I discussed the plan for discharge, and he expressed understanding the risk benefits of going home. We will continue with his home cardiac meds and he will need to follow-up with cardiology in a few weeks once he is outside of his Covid quarantine for further evaluation and if he continues to have episodes, initiation of amiodarone 2. COVID-19 -Continue with Decadron, no leukocytosis however there is a lymphopenia and he recently did become sick -He is not hypoxic and does not require oxygen at this time -He has remained stable from a Covid perspective, will continue with Decadron until he completes a 10-day course 3. DM 2 -Continue with his Metformin and monitor his blood sugars. Accu-Cheks AC at bedtime -Continue with sliding scale insulin Patient Problems: Active and Suspected Problems (Last Reviewed 02/01/20 @ 11:[address] Jaclyn Gill MD) COVID-19 (Acute) PVC (premature ventricular contraction) (Acute) - Physical Exam Vitals/I&O's: Vital Signs Temp Pulse Resp BP Pulse Ox 97.9 F 60 16 115/80 98 02/19/20 08:39 02/19/20 08:39 02/19/20 08:39 02/19/20 08:39 02/19/20 08:39 Oxygen Flow Rate (L/min) 2 Oxygen Delivery Method Room Air Weight: 266 lb Body Mass Index (BMI) 36.1 Intake and Output for Last 24 Hours 02/17/20 02/18/20 02/19/20 23:59 23:59 23:59 Intake Total 240 / 240 480 / 480 980 / 980 Output Total 350 / 350 1100 / 1100 1630 / 1630 Balance -110 / -110 -620 / -620 -650 / -650 General: Alert, Oriented x3, Cooperative, No apparent distress HEENT: Atraumatic, PERRLA, EOMI, Normocephalic Oral: Moist Mucosa Neck: Supple, No JVD Lungs: Clear to auscultation, Normal air movement, No rhonchi, No wheeze, No rales, Diminished Cardiovascular: Regular rate, Regular Rhythm, Normal S1, Normal S2, No murmurs Abdomen: Soft, Non Tender, Non-Distended, No Hepato-splenomegaly Extremities: No edema, Capillary Refill Less than 3 Seconds Skin: No rashes, No breakdown Neurological: Neuro grossly intact, Sensory exam intact to light touch and pain Psych/Mental Status: Normal Affect, Appropriate Laboratory Results 02/19/20 05:10: Free T4 0.86, Free T3 pg/dL 1.2 L 02/19/20 08:45: WBC 10.1, RBC 5.48, Hgb 15.4, Hct 48.3, MCV 88.1, MCH 28.1, MCHC 31.9 L, RDW Std Deviation 41.2, RDW Coeff of [place] 12.7, Plt Count 290, MPV 9.9, Immature Gran % (Auto) 0.400, Neut % (Auto) 74.5 H, Lymph % (Auto) 14.1 L, [place] % (Auto) 10.9 H, Eos % (Auto) 0.0, Baso % (Auto) 0.1, Absolute Neuts (auto) 7.5, Absolute Lymphs (auto) 1.43, Nucleated RBC % 0 02/19/20 08:45: Sodium 136, Potassium 4.0, Chloride 104, Carbon Dioxide 24.0, Anion Gap 8, BUN 21 H, Creatinine 0.87, Estim Creat Clear Calc 96.63, Est GFR (MDRD) Af Amer 114, Est GFR (MDRD) Non-Af 95, BUN/Creatinine Ratio 24.1 H, Glucose 173 H, Calcium 9.1 02/19/20 12:15: POC Glucose 280 H Current Medications Acetaminophen (Acetaminophen 325 Mg Tablet) 650 mg PO Q6H PRN PRN PRN Reason: Pain Score 1-10/Temp > 100.7 F Aspirin (Aspirin E.C. 81 Mg Tablet) 81 mg PO DAILY@0800 [facility] Last Admin: 02/19/20 09:30 Dose: 81 mg Documented by: Atorvastatin Calcium (Atorvastatin Calcium 10 Mg Tablet) 5 mg PO QHS [facility] Last Admin: 02/18/20 23:32 Dose: 5 mg Documented by: Carvedilol (Carvedilol 12.5 Mg Tablet) 12.5 mg PO BID [facility] Last Admin: 02/19/20 09:31 Dose: 12.5 mg Documented by: Dexamethasone (Dexamethasone 4 Mg Tablet) 6 mg PO DAILY [facility] Last Admin: 02/19/20 09:31 Dose: 6 mg Documented by: Diltiazem HCl (Diltiazem Cd 240 Mg Capsule) 240 mg PO DAILY [facility] Last Admin: 02/19/20 09:31 Dose: 240 mg Documented by: Enoxaparin Sodium (Enoxaparin 30 Mg/0.3 Ml Syringe) 30 mg SC BID [facility] Last Admin: 02/19/20 09:31 Dose: 30 mg Documented by: Sodium Chloride () 250 mls @ 15 mls/hr IV .[id number] PRN PRN Reason: Saline Flush Sodium Chloride () 250 mls @ 15 mls/hr IV .[id number] PRN PRN Reason: Additional IVPB Infusion Lisinopril (Lisinopril 20 Mg Tablet) 20 mg PO DAILY [facility] Last Admin: 02/19/20 09:31 Dose: 20 mg Documented by: Metformin HCl (Metformin Hcl 500 Mg Tablet) [facility] Last Admin: 02/19/20 09:30 Dose: 1,000 mg Documented by: Ondansetron HCl (Ondansetron 4 Mg/2 Ml Vial) 4 mg IV Q8H PRN PRN PRN Reason: NAUSEA/VOMITING Sodium Chloride (0.9% Saline Lock 10 Ml Syringe) 10 - 40 ml IV UD PRN PRN Reason: SALINE FLUSH Last Admin: 02/19/20 09:35 Dose: 10 ml Documented by: Discharge Activity: Return to Normal Activity Call your doctor if you observe: Fever of 101 or Higher, Shortness of breath, Dizziness, Fainting spells, Swelling in the ankles, Chest pain, Increased palpitations (irregular heartbeat) Home Medications: Medications to take at Discharge Aspirin E.C. [Ecotrin] 81 mg PO DAILY@0800 01/05/20 Lovastatin 20 mg PO DAILY 01/05/20 metformin 500 mg tablet 1,000 mg PO BID tab 02/01/20 Apixaban [Eliquis] 5 mg PO BID 02/17/20 Carvedilol 12.5 mg PO BID 02/17/20 Diltiazem CD [Cardizem CD] 240 mg PO DAILY 02/17/20 Lisinopril 20 mg PO DAILY 02/17/20 Dexamethasone [Decadron] 6 mg PO DAILY #12 tab 02/19/20 Following Prescriptions Were Given to Patient: Dexamethasone [Decadron] 6 mg PO DAILY #12 tab Transmission Status: Received by [facility] Primary Care Physician: Blayne Haynes MD [Primary Care Provider] - Please follow up with your Primary Care Physician in: 3-5 days Please Follow Up With: Jaclyn Gill MD When: 2 weeks Disposition: Home Minutes spent on discharge:: 35 Patient Condition:: Stable Medical Necessity - Tobacco Use Smoking Status: Never smoker Tobacco Use: Non-smoker Meaningful Use Info Meaningful Use Diagnoses (Choose all that apply): None applicable OBSV E&M: 28526 Observation care discharge
[2020-02-19 13:11] VITALS: BP 129/82; PULSE 60; RESP 16; TEMP 36.6; O2SAT 98
== END 2020-02-19 13:50 | disposition home or self-care (01) ==
LOC: ED 14:57 → MS2 16:59
PROVIDERS: Emergency Provider Emergency Medicine; PCP Family Medicine; Visit Provider Family Medicine
DX: U07.1 COVID-19 (principal); I44.7 Left bundle-branch block, unspecified; I10 Essential (primary) hypertension; I48.0 Paroxysmal atrial fibrillation; I47.2 Ventricular tachycardia; E78.5 Hyperlipidemia, unspecified; E11.9 Type 2 diabetes mellitus without complications; K21.9 Gastro-esophageal reflux disease without esophagitis; G47.33 Obstructive sleep apnea (adult) (pediatric); Z79.899 Other long term (current) drug therapy; Z79.82 Long term (current) use of aspirin; Z79.01 Long term (current) use of anticoagulants; I69.351 Hemiplegia and hemiparesis following cerebral infarction affecting right dominant side; E66.9 Obesity, unspecified; Z68.36 Body mass index [BMI] 36.0-36.9, adult
CPT/HCPCS: 36415; 71045; 80048; 80053; 82962; 83735; 84439; 84443; 84481; 84484; 85025; 85379; 85610; 87635; 93005; 96372; 99218; 99251; 99285; A4216; G0378; G0463; U0002

== ENCOUNTER 2020-04-04 08:57 | Day surgery (SDC) | payer MEDICARE, SELFPAY ==
[2020-02-01 10:19] VITALS: BMI 37.4
--- NOTE | 2020-02-17 06:00 | HP_ITS ---
HPI HPI History of Present Illness Details: 02/01/2020: 60-year-old male with past medical history of paroxysmal atrial fibrillation, hypertension, dyslipidemia, sleep apnea, diabetes, CVA, nonsustained V. tach that was recently found when he was admitted to the hospital with palpitations referred to us for palpitations. Palpitations sometimes happen 4 months apart sometimes happen within a week. They sometimes last hours. Intake Vital Signs 02/01/20 Height 6 ft 02/01/20 Weight: 276 lb 02/01/20 BMI 37.4 02/01/20 BP 116/66 02/01/20 Blood Pressure Location Lt brachial 02/01/20 Position Sitting 02/01/20 Respiration 16 02/01/20 Pulse 64 02/01/20 Pulse Source Auscultation Intake Visit Reasons: PALPS (PREV RIRI - NO CONSULT IN PCU) Compounder Flavorings Required: No Accompanied by: Is patient in pain?: No Allergies No Known Allergies Allergy (Verified 02/01/20 10:24) Medications Diltiazem CD [Cardizem CD] 240 mg PO DAILY #30 cap 09/01/17 [Rx Confirmed 02/01/20] Apixaban [Eliquis] 5 mg PO BID 01/05/20 [History Confirmed 02/01/20] Aspirin E.C. [Ecotrin] 81 mg PO DAILY@0800 01/05/20 [History Confirmed 02/01/20] Lovastatin 20 mg PO DAILY 01/05/20 [History Confirmed 02/01/20] carvedilol 6.25 mg tablet 6.25 mg PO BID #60 tab 02/01/20 [Rx Confirmed 02/01/20] lisinopril 10 mg tablet 10 mg PO DAILY #30 tab 02/01/20 [Rx Confirmed 02/01/20] metformin 500 mg tablet 1,000 mg PO BID tab 02/01/20 [History Confirmed 02/01/20] FOR[facility]LY [facility] Medical History NSVT (nonsustained ventricular tachycardia) (Resolved) H/O ischemic right MCA stroke (Resolved ~2011) Hyperlipidemia (Chronic) Type 2 diabetes mellitus without complication (Chronic) VIRGIL on CPAP (Chronic) Paroxysmal atrial fibrillation (Chronic) Exertional dyspnea (Resolved) PVC (premature ventricular contraction) (Chronic) Hemiparesis (Chronic) Gastroesophageal reflux disease (Chronic) Essential hypertension (Chronic) Ocular toxoplasmosis (Chronic) Surgical History History of YAG laser capsulotomy of lens of right eye (Resolved) History of left inguinal hernia repair (Resolved) History of vitrectomy (Resolved) Family History Father Heart disease Myocardial infarction Social History (Updated 02/01/20 @ 13:[address] Jaclyn Gill MD) Smoking Status: Never smoker alcohol intake: never substance use type: does not use caffeine: No ROS Const Const: Negative for fatigue, weakness, headache(s), frequent falls, difficulty sleeping or excessive sweating Eyes Eyes: Negative for loss of peripheral vision, transient loss of vision, blurry vision, double vision or tunnel vision ENT ENT: Negative for headache(s), dizziness, Nosebleed/epistaxis or balance problems Cardio Chest Pain: No Palpitations: No Edema: None Muscle aches with walking: None Resp Respiratory: Negative for SOB with activity, SOB at rest, SOB orthopnea\SOB lying down, Cough or paroxysmal nocturnal dyspnea GI GI: Negative nausea, vomiting, heartburn or black,tarry stools : Negative for hematuria Musc Musc: Negative for muscle aches/ myalgia, muscle weakness, joint pain or balance problems Skin Skin: Negative non-healing lesions, rash or unusual bruising Neuro Neuro: Negative for dizziness, lightheadedness, near syncope, syncope, frequent falls, headache(s), weakness, blurry vision, double vision or lack of coordination Carlos Hematologic/Lymphatic: Negative for easy bleeding or easy bruising Endo Endo: Negative for fatigue, excessive sweating or increased thirst/drinking Psych Psych: Negative for anxiety or depression Allergy Allergy/Immunology: Negative for hives, Negative for rash Cardiology Exam Const Appearance: cooperative; negative acute distress Nutritional Appearance: well nourished Head Head: normocephalic and atraumatic Ears: hearing grossly normal bilaterally Nose: external nose normal Face and Sinus: face symmetric Mouth: moist mucous membranes Teeth and gingiva: fair dentition Eyes General: appearance normal, both eyes and all related structures Eyelids: eyelids normal Conjunctivae: conjunctivae normal Neck Neck: trachea midline and no JVD Chest Chest inspection: symmetric chest movement; negative pursed lip breathing Auscultation: Bilateral: Clear to Auscultation Cardio Rate: regular rate Rhythm: regular rhythm Heart sounds: S1 normal and S2 normal No Murmurs GI GI: normal to inspection Neuro General: alert, awake and oriented x3 Gait: Negative ataxic Skin Skin: no rashes or lesions noted; negative atrophy or jaundice Extremities Pulses: Normal: Right Posterior Tibial Pulse, Left Posterior Tibial Pulse Lower Extremity Edema: None: Bilateral Musculoskel Musculoskeletal: No joint tenderness Psych Psychological: normal affect Assessment & Plan 1. NSVT (nonsustained ventricular tachycardia) I47.2 Plan Stress test when patient was in the hospital was negative for ischemia. EF was preserved. We will check a 30-day event monitor. We will decrease the lisinopril and switch from metoprolol to carvedilol as patient seems to be having some GI side effects with metoprolol. Orders Orders: 30 Day Event Recorder Preventi Today 2. Paroxysmal atrial fibrillation I48.0 Plan continue current meds 3. Essential hypertension I10 Plan med changes as above Plan Detail Other Medications New: carvedilol must administer with a meal/food 6.25 mg PO BID 60 tabs 11RF lisinopril 10 mg PO DAILY 30 tabs 11RF Discontinued: metoprolol tartrate Discontinued Reason: Order Changed 25 mg PO BID 60 tabs 0RF Follow Up 2-3 mths Coding Level of Care Code Off vis,new,level 4 Diagnoses NSVT (nonsustained ventricular tachycardia) I47.2 Paroxysmal atrial fibrillation I48.0 Essential hypertension I10 Coding Level of Care Code Off vis,new,level 4 Diagnoses NSVT (nonsustained ventricular tachycardia) I47.2 Paroxysmal atrial fibrillation I48.0 Essential hypertension I10 Supplemental Info Supplemental Information Diagnostics Electrocardiogram 01/06/20 Stress Test Nuclear Medicine 01/06/20 Stress Test 01/06/20 Chest X-Ray 01/05/20
[2020-03-20 10:24] VITALS: BMI 35.9
[2020-03-20 12:18] LABS: Absolute Lymphocyte Count 2.31 X10^3/uL (0.83-4.51); Absolute Neutrophil Count 4.8 X10^3/uL (2.0-7.7); Basophil# 0.03 X10^3/uL; Basophil% 0.4 % (0-1); Eosinophils% 2.4 % (0-5); Hematocrit 43.7 % (40-54); Lymphocyte # 2.31 X10^3/ul (4.0); Lymphocyte % 27.7 % (19-41); Mean Corpuscular Hgb 28.3 pg (27.0-32.0); Mean Corpuscular Volume 88.5 fL (80-94); Mean Platelet Vol. 9.1 fl (6.2-12.0); Monocyte# 0.98 X10^3/uL; Monocyte% 11.8 % (0-10); NRBC Flagged by Analyzer 0 % (0-5); Neutrophil # 4.79 X10^3/uL (2.7-7.7); Neutrophil % 57.3 % (47-70); Platelet Count 301 K/mm3 (150-450); RBC Distribution Width CV 13.4 % (11.6-14.6); RBC Distribution Width SD 43.4 fl (35.1-43.9); Red Blood Count 4.94 M/mm3 (4.6-6.2); White Blood Count 8.3 K/mm3 (4.4-11.0)
[2020-03-20 12:49] LABS: Anion Gap 7 (5-15); BUN 19 mg/dL (7-18); Calcium,Total 9.4 mg/dL (8.5-10.1); Chloride 106 mmol/L (98-107); Creatinine, Serum 0.95 mg/dL (0.70-1.30); EST Glomerular Filtration Rate 85 mL/min (>60); Est Glom Filt Rate - Afr Amer 103 mL/min (>60); Glucose 199 mg/dL (74-106); Potassium 4.1 mmol/L (3.5-5.1); Sodium Level 139 mmol/L (136-145)
[2020-03-29 12:03] VITALS: BMI 35.9
[2020-04-04] VITALS (14 sets, daily range): BP systolic 113–135; BP diastolic 63–86; PULSE 57–64; RESP 13–18; TEMP 36.7–37; O2SAT 93–99
--- NOTE | 2020-04-04 11:45 | EKG12_ITS ---
Test Reason : PCI Blood Pressure : / mmHG Vent. Rate : 057 BPM Atrial Rate : 057 BPM P-R Int : 164 ms QRS Dur : 092 ms QT Int : 472 ms P-R-T Axes : 004 028 030 degrees QTc Int : 459 ms Poor data quality, interpretation may be adversely affected Sinus bradycardia Otherwise normal ECG When compared with ECG of 17-FEB-2020 13:56, Previous ECG has undetermined rhythm, needs review Questionable change in QRS duration Confirmed by BASSAM SCHREIBER, EMILY ([id number]), manuscript editor MIKE MENA ([id number]) on 04/10/2020 9:44:35 AM Referred By: Jaclyn Gill Confirmed By:PEYTON GILL MD
--- NOTE | 2020-04-04 12:10 | PCS.PANDOC ---
PANDEMIC DOCUMENTATION INITIATED: Date: 04/04/2020 Time: 1063
[2020-04-04 12:22] LABS: Hematocrit 41.1 % (40-54); Hemoglobin 13.6 g/dL (13.0-16.5); Mean Corp Hgb Conc 33.1 g/dL (32-36); Mean Corpuscular Hgb 29.3 pg (27.0-32.0); Mean Corpuscular Volume 88.6 fL (80-94); Mean Platelet Vol. 9.5 fl (6.2-12.0); Platelet Count 255 K/mm3 (150-450); RBC Distribution Width CV 13.7 % (11.6-14.6); RBC Distribution Width SD 44.1 fl (35.1-43.9); Red Blood Count 4.64 M/mm3 (4.6-6.2); White Blood Count 8.7 K/mm3 (4.4-11.0)
--- NOTE | 2020-04-04 12:57 | CRPHASE1_ITS ---
Patient Communication Former Patient:: Phase I PHII Cardiac Rehab Discussed with Patient:: Yes Guide to Cardiac Rehab Given to Patient:: Yes Cardiac Rehab Facility Choice List Given to Patient:: Yes Choice Program [facility] CR PHII:: Communication Given to CR Assistant Controller:: Jaclyn Gill Phase II Cardiac Rehab:: Yes Sessions:: 36 sessions - 3 days/wk, 12 weeks Risk Factors/Lifestyle Smoking Status: Never smoker Second-Hand Smoke:: No Hx Hypertension: Yes Hx Diabetes Mellitus Type 1: No Hx Diabetes Mellitus Type 2: Yes Hx Metabolic Disorders: No Hx Dyslipidemia: Yes Hx Obesity: Yes Post-Menopausal: No ETOH: No Caffeine: No Substance Abuse: No Risk Factor for Sedentary Lifestyle: Moderate Risk Family History: Family History (Last Reviewed 03/20/20 @ 10:33 by Jessica Norton) Father Heart disease Myocardial infarction Family History: Diabetes, High Cholesterol, Hypertension, Stroke Past Cardiac Illness: Coronary Artery Disease Phase I Education Given On:: [place], Nutrition, Antiplatelet medication, Diabetes - Type II Issues Affecting Care:: None Knowledge of Condition:: Yes Learning Preferences: Verbal, Written Cardiac Rehabilitation Info Cardiac Rehabilitation Program Information: Cardiac Rehabilitation is important for patients like you who are recovering from a heart problem. Cardiac rehabilitation programs are recognized as integral to the continued care of the patient with coronary heart disease. The cardiac rehabilitation program is designed to optimize a patient's physical, psychological, and social functioning. Health vehicle care specialist work in cardiac rehabilitation programs and assist you with getting the treatments you need to get stronger and healthier - like exercise, healthy eating habits, and medications. Cardiac rehabilitation has been show to help people with heart problems live longer and have better life enjoyment than people who do not go to cardiac rehabilitation. Please contact the Cardiac Rehabilitation Program at [facility] at in two weeks if you have not heard from them.
--- NOTE | 2020-04-04 13:00 | CRPH1.INSTRU ---
General Education CAD and cardiac anatomy and function:: Patient communicates acknowledgment, Needs reinforcement Explanation of diagnoses and procedures:: Patient communicates acknowledgment, Needs reinforcement Sign/Symptoms of SC:: Patient communicates acknowledgment, Needs reinforcement Antiplatelet therapy: Patient communicates acknowledgment, Needs reinforcement Proper use of NTG-SL: Patient communicates acknowledgment, Needs reinforcement Emergency procedures and activation of EMS: Patient communicates acknowledgment, Needs reinforcement Compliance of all prescribed medications: Patient communicates acknowledgment, Needs reinforcement Smoking Patient Nicotine/Smoking Risk Factors Are:: Never smoked Dyslipidemia Patient Dyslipidemia Risk Factors Are:: Total Cholesterol, Triglycerides, HDL, LDL Recommendations Include:: Lipid profile not available, Reviewed NCEP/ATP guidelines, Therapeutic Lifestyle Change dietary guidelines Dyslipidemia Response Code:: Patient communicates acknowledgment, Needs reinforcement Overweight/Obesity Patient Overweight/Obesity Risk Factors Are:: Obesity - > or = 30 Recommendations Include:: Weight loss of 5-10%, Reduced calorie diet, Exercise 5-7 times/week Overweight/Obesity:: Patient communicates acknowledgment, Needs reinforcement Hypertension Recommendations Include:: BP <130/80 if diabetic, DASH dietary guidelines, Decrease/maintain normal body weight, Moderation of ETOH Hypertension:: Patient communicates acknowledgment, Needs reinforcement Diabetes Patient Diabetes Risk Factors Are:: Elevated blood sugars Recommendations Include:: Maintain fasting blood sugars 70-110 md/dL, Maintain HgbA1c of 6% or less, Monitor blood sugar as prescribed, Diabetic dietary guidelines, Decrease/maintain body weight Diabetes:: Patient communicates acknowledgment, Needs reinforcement Sedentary Patient Sedentary Risk Factors Are:: Lack of regular exercise Recommendations Include:: Aerobic exercise 5-7 times/week for 20-30 minutes continuously, Benefits of regular exercise, Discussed home walking program, Monitored Outpatient Cardiac Rehab Sedentary Response Code:: Patient communicates acknowledgment, Needs reinforcement Stress Patient Stress Risk Factors Are:: Patient denies stress as a risk factor
[2020-04-04] MEDS: 0.9% Normal Saline 1,000 ML 100 ML IV (13:05)
[2020-04-04] MEDS: Carvedilol 6.25 MG Tablet PO (16:38)
[2020-04-04] MEDS: Clopidogrel Bisulfate 300 MG Tablet PO (22:54)
[2020-04-04] MEDS: Atorvastatin Calcium 40 MG Tablet PO (22:54)
[2020-04-04] MEDS: APIXABAN 5 MG TABLET PO (22:54)
[2020-04-05] VITALS (7 sets, daily range): BP systolic 137–153; BP diastolic 75–80; PULSE 59–77; RESP 16–18; TEMP 36.6–36.8; O2SAT 95–96
[2020-04-05 06:44] LABS: Hematocrit 43.1 % (40-54); Hemoglobin 13.9 g/dL (13.0-16.5); Mean Corp Hgb Conc 32.3 g/dL (32-36); Mean Corpuscular Hgb 28.7 pg (27.0-32.0); Mean Corpuscular Volume 88.9 fL (80-94); Mean Platelet Vol. 9.7 fl (6.2-12.0); Platelet Count 251 K/mm3 (150-450); RBC Distribution Width CV 13.7 % (11.6-14.6); RBC Distribution Width SD 43.9 fl (35.1-43.9); Red Blood Count 4.85 M/mm3 (4.6-6.2); White Blood Count 10.1 K/mm3 (4.4-11.0)
[2020-04-05 07:08] LABS: ALB/GLOB Ratio 1.3 RATIO (0.9-2.4); AST(SGOT) 17 U/L (15-37); Alanine Aminotransfer ALT/SGPT 36 U/L (16-61); Albumin, Serum 3.9 g/dL (3.2-5.0); Alkaline Phosphatase 63 U/L (45-117); Anion Gap 6 (5-15); BUN 15 mg/dL (7-18); BUN/Creat Ratio 16.7 RATIO (10-20); Calcium,Total 8.8 mg/dL (8.5-10.1); Chloride 109 mmol/L (98-107); EST Glomerular Filtration Rate 91 mL/min (>60); Est Glom Filt Rate - Afr Amer 110 mL/min (>60); Estimated Creatinine Clearance 93.41 ml/min; Globulin 3.1 g/dL (2.2-4.2); Glucose 136 mg/dL (74-106); Potassium 4.1 mmol/L (3.5-5.1); Sodium Level 140 mmol/L (136-145)
[2020-04-05] MEDS: APIXABAN 5 MG TABLET PO (07:52)
[2020-04-05] MEDS: Aspirin E.C. 81 MG Tablet PO (07:53)
[2020-04-05] MEDS: dilTIAZem CD 240 MG Capsule PO (07:53)
[2020-04-05] MEDS: Amiodarone 200 MG Tablet PO (07:53)
[2020-04-05] MEDS: Clopidogrel Bisulfate 75 MG Tablet PO (07:53)
[2020-04-05] MEDS: Carvedilol 6.25 MG Tablet PO (07:53)
[2020-04-05] MEDS: Lisinopril 20 MG Tablet PO (07:53)
--- NOTE | 2020-04-05 10:00 | EKG12_ITS ---
Test Reason : AM EKG Blood Pressure : / mmHG Vent. Rate : 062 BPM Atrial Rate : 062 BPM P-R Int : 160 ms QRS Dur : 094 ms QT Int : 460 ms P-R-T Axes : 024 030 039 degrees QTc Int : 466 ms Normal sinus rhythm Normal ECG When compared with ECG of 04-APR-2020 14:11, MANUAL COMPARISON REQUIRED, DATA IS UNCONFIRMED Confirmed by BASSAM SCHREIBER, EMILY ([id number]), editor managing newspaper MIKE MENA ([id number]) on 04/10/2020 9:36:13 AM Referred By: Jaclyn Gill Confirmed By:PEYTON GILL MD
--- NOTE | 2020-04-05 13:32 | DCINST_ITS ---
Discharge Diet: Low fat/ Low Cholesterol Lifting Restrictions: 10 pounds and also avoid any pushing or pulling for 3 days after your test. Call your doctor if your incision/area has: Continuous Slow Oozing, Sudden Increased Bleeding, Increased Pain/ Swelling, Increased Redness, Foul Smelling Discharge, Swelling at the incision site Remove Dressing in (days):: 1 Allergies/Adverse Reactions: Allergies No Known Allergies Allergy (Verified 03/20/20 10:27) Medications to take at Discharge Aspirin E.C. [Ecotrin] 81 mg PO DAILY@0800 01/05/20 Apixaban [Eliquis] 5 mg PO BID 02/17/20 Diltiazem CD [Cardizem CD] 240 mg PO DAILY 02/17/20 Lisinopril 20 mg PO DAILY 02/17/20 carvedilol 6.25 mg tablet 6.25 mg PO BID tab 03/20/20 amiodarone 200 mg tablet 200 mg PO DAILY #90 tab 03/21/20 Atorvastatin Calcium [Lipitor] 40 mg PO QHS #30 tab 04/05/20 Clopidogrel Bisulfate [Plavix] 75 mg PO DAILY 30 Days tablet 04/05/20 Metformin HCl [Glucophage] 1,000 mg PO BID #0 tab 04/05/20 The following prescriptions were given: Atorvastatin Calcium [Lipitor] 40 mg PO QHS #30 tab Transmission Status: Pending to [id number] Clopidogrel Bisulfate [Plavix] 75 mg PO DAILY 30 Days tablet Primary Care Physician: Blayne Haynes MD [Primary Care Provider] - Test Results: Test results from this visit will be discussed in further detail at your follow- up appointment, if applicable. Please Follow Up With: Cindy Jenkins PA - in 2-3 weeks Proposed Discharge Date: 04/05/20 Cardiac Rehabilitation Info Cardiac Rehabilitation Program Information: Cardiac Rehabilitation is important for patients like you who are recovering from a heart problem. Cardiac rehabilitation programs are recognized as integral to the continued care of the patient with coronary heart disease. The cardiac rehabilitation program is designed to optimize a patient's physical, psychological, and social functioning. Health medical care evaluation specialist work in cardiac rehabilitation programs and assist you with getting the treatments you need to get stronger and healthier - like exercise, healthy eating habits, and medications. Cardiac rehabilitation has been show to help people with heart problems live longer and have better life enjoyment than people who do not go to cardiac rehabilitation. Please contact the Cardiac Rehabilitation Program at [facility] at in two weeks if you have not heard from them.
--- NOTE | 2020-04-05 14:40 | PCM.PN.BLA ---
Progress Note Discharge summary Date of admission: 04/04/2020 Date of discharge: 04/05/2020 Reason for the hospital visit: For elective cardiac catheterization Procedures performed: Left heart cath, coronary angiography, PCI to the RCA, PCI to the RPL Hospital course: Patient underwent coronary angiography and PCI to the RCA and RPL without any complications. He was monitored overnight on telemetry. He had one 12 beat run of what appears to be nonsustained ventricular tachycardia. We will go ahead and order a 30-day event monitor again as an outpatient to see if patient continues to have episodes of nonsustained V. tach despite having PCI of the RCA and RPL. Patient is stable and is being discharged home. He will follow-up with our office as an outpatient. He was started on Plavix during this admission and his lovastatin was switched to atorvastatin. STROKE Vital Signs/Narrative: Vital Signs Pulse 04/05/20 11:00 70
--- NOTE | 2020-04-06 18:21 | CL.I_ITS ---
Patient Name: CHUCKY FOSTER Study Date: 04/04/2020 Performing: Shauna Gill MD Ht: 72 inches 183 cm : 1960 Wt: 264.9 lbs 120 kg Age: 60 Gender: male BSA: 2.4 PROCEDURE(S) PERFORMED CS23-CEC/COR/LV [id number] GUIDED ACCESS [id number] W OR WO PTCA, SINGLE CORONARY ARTERY [id number] W OR WO PTCA, EACH ADD'L ARTERY, SAME MAJOR CLINICAL PROFILE AND CO-MORBIDITIES Indications: Cardiac Arrythmia. V tach Heart Failure: None Stress/Imaging Date: 01/05/20 Stress Test with SPECT MPI: Negative CONCLUSIONS CAD as described.Preserved EF. No significant or MR. Successful PCI of RPL and mRCA with VINNIE RECOMMENDATIONS ASA Indefinitley Brilinta for at least 12 months Consider FFR of PCI if clinically warranted DESCRIPTION OF PROCEDURE The patient arrived to the procedure lab. The risks and benefits of the procedure as well as a full d escription of our services here and lack of surgical backup were fully explained to the patient and/o r their significant other prior to the catheterization. The Timeout was completed, verifying the venita ect patient and procedure. The patient's procedural site was prepped and draped in the usual fashion. Local anesthetic was given subcutaneously to right radial region with Lidocaine 2%. Using a modified Seldinger technique, arterial access was obtained via the right radial artery, a 6Fr sheath was inse rted.. Left Coronary Artery selective angiography was performed in multiple views using a 5 Fr. JL3. 5 catheter. Left Ventriculography was performed in RIOJAS projection using a 5 Fr JR 4.0.. LV to AO pull back pressures were then recorded. Right Coronary Artery selective angiography was then performed in multiple views using a 5 Fr. JR 4 catheterThe images were reviewed and options discussed. A decision was then made to proceed with an Intervention, IVUS or other adjunct procedure. JR 4.0 Guide catheter was inserted and engaged into the RCA. BMW Guide wire was advanced to the R PL. 2.5 x 12 Synergy Drug Eluting stent was advanced across the lesion in the RPL Angiogram performe d pre stent deployment. Angiogram performed post stent deployment. 4.0 x 15 NC Emerge Balloon cathete r was advanced across lesion in the right coronary, mid. PTCA balloon inflated at 12 atms for 8 secs. PTCA balloon inflated at 16 atms for 16 secs. 4.0 x 20 Synergy Drug Eluting stent was advanced acros s the lesion in the right coronary, mid. Angiogram performed pre stent deployment. Angiogram performe d post stent deployment. 4.0 x 15 NC Emerge Balloon catheter was inserted post stent Mid RCA. Angiogr am performed post balloon dilatation. The arterial sheath was pulled and a TR Band was applied for hemostasis 12cc air inserted CORONARY ANGIOGRAPHY DOMINANCE: Right Dominant LEFT HEART ASSESSMENT Left Ventricular Ejection Fraction: by LV Gram 60 % LEFT MAIN: Mild luminal irregularities LEFT ANTERIOR DESCENDING ARTERY: MID LAD: 50 % Stenosis CIRCUMFLEX ARTERY: Mild luminal irregularities RIGHT CORONARY ARTERY: MID RCA: 80 % Stenosis RT PLV: 80 % Stenosis VALVE FINDINGS: No Aortic Valve Stenosis No Mitral Insufficency INTERVENTION INFORMATION LESION SITE: RPL (1st) Lesion Complexity: High/C, chronic total occlusion: No, lesion at bifurcation: Yes, thrombus present: No, lesion length: 12 mm, culprit lesion: Yes, Previously treated lesion: No Pre Stenosis: 80 % Pre intervention LA flow: 3 PROCEDURE: Drug Eluting Stent Post Stenosis: 0 % Post intervention LA flow: 3 Lesion Devices: Medtronic 6 Fr JR4.0 100cm Guide Catheter Turner .014 BMW [place] Straight 190cm Last Sci Synergy MR VINNIE 2.50x12 LESION SITE: RCA (Mid) Lesion Complexity: High/C, chronic total occlusion: No, lesion at bifurcation: No, thrombus present: No, lesion length: 16 mm, culprit lesion: Yes, Previously treated lesion: No Pre Stenosis: 80 % Pre intervention LA flow: 3 PROCEDURE: Drug Eluting Stent with pre dilatation. Post Stenosis: 0 % Post intervention LA flow: 3 Lesion Devices: Medtronic 6 Fr JR4.0 100cm Guide Catheter Turner .014 BMW [place] Straight 190cm Last Sci NC EMERGE MR 4.00x15 BALLOON Last Sci Synergy MR VINNIE 4.00x20 COMPLICATIONS No Complications PROCEDURE MEDICATIONS Fentanyl 50 mcg IV Versed 1 mg IV Oxygen: 2 L/min via nasal cannula Brilinta 180 mg PO @ 04/04/2020 11:17:48 Heparin given IA 04/04/2020 10:25:02 Heparin 6000 unit(s) IV 04/04/2020 10:42:16 Verapamil 2.5mg, Ntg 100mcgs, 3000 units of Heparin given IA 04/04/2020 10:25:02 SUMMARY OF HEMODYNAMIC DATA Time AIR REST ECG 09:11:22 AO 112/74 (90) SA 10:29:59 LV 136/-3, 19 10:36:53 LV 133/-3, 21 10:36:59 LV 130/-3, 19 10:37:46 LVp 134/-2, 16 10:37:56 AOp 132/72 (96) 10:38:01 Signed By Shauna Gill MD On 04/06/2020 6:20:06 PM Shauna Gill MD
== END 2020-04-05 13:36 | disposition home or self-care (01) ==
LOC: CLSP 08:58 → PCU 04-10 10:37
PROVIDERS: Physician Assistant Medical; PCP Family Medicine; Referring Provider Specialist; Visit Provider Specialist
DX: I25.10 Atherosclerotic heart disease of native coronary artery without angina pectoris (principal); I47.2 Ventricular tachycardia; I48.0 Paroxysmal atrial fibrillation; I10 Essential (primary) hypertension; E78.5 Hyperlipidemia, unspecified; E11.9 Type 2 diabetes mellitus without complications; K21.9 Gastro-esophageal reflux disease without esophagitis; Z86.73 Personal history of transient ischemic attack (TIA), and cerebral infarction without residual deficits; Z95.5 Presence of coronary angioplasty implant and graft; Z79.01 Long term (current) use of anticoagulants; Z79.82 Long term (current) use of aspirin; Z79.84 Long term (current) use of oral hypoglycemic drugs; Z79.899 Other long term (current) drug therapy
CPT/HCPCS: 36415; 76937; 80048; 80053; 85025; 85027; 85610; 85730; 92928; 92929; 93005; 93458; 99152; 99153; J7030; J7040; Q9967; C1725; C1769; C1874; C1887; C1894; C9600; C9601; J1327

== ENCOUNTER → 2020-11-30 10:41 | Outpatient (CLI) | payer MEDICARE, SELFPAY ==
[2020-11-08 08:38] VITALS: BMI 37.7
--- NOTE | 2020-12-01 10:15 | PFT ---
INTRODUCTION: The patient is a 60-year-old male that presents for pulmonary function studies secondary to a diagnosis of long-term medication use. Respiratory therapy reported good patient effort. Bronchodilators were used during testing. INTERPRETATION: Forced expiration spirometry demonstrates no evidence of a large airways obstructive ventilatory defect. There was no significant response to aerosolized bronchodilators. Spirograms are of good quality and plateau normally. Body plethysmography was performed and reveals lung volumes to be within normal limits. Diffusing capacity by single breath CO is also within normal limits. IMPRESSION: Grossly normal pulmonary function studies.
== END ==
PROVIDERS: PCP Family Medicine; Referring Provider Nurse Practitioner Gerontology; Visit Provider Nurse Practitioner Gerontology
DX: Z79.899 Other long term (current) drug therapy (principal)
CPT/HCPCS: 94060; 94726; 94729

== ENCOUNTER → 2021-08-07 | Outpatient (CLI) | payer MEDICARE, SELFPAY ==
--- NOTE | 2021-08-07 10:40 | RAD_ITS ---
STUDY: X-RAY CHEST REASON FOR EXAM: Male, 61 years old. Long-term use of medication. TECHNIQUE: PA and lateral views of the chest. COMPARISON: Comparison is made with prior study dated 02/17/2020. FINDINGS: The lungs are clear and expanded. There is no demonstrated pleural abnormality. There is borderline cardiomegaly. Normal mediastinum and inocente. Normal visualized pulmonary arteries. There is atherosclerotic tortuosity of the aortic arch and descending thoracic aorta. There are diffuse degenerative changes of the visualized thoracic spine. Normal visualized ribs, clavicles, and shoulders. There is no demonstrated abnormality of the visualized soft tissue structures of the upper abdomen. RAD/Chest PA and Lateral IMPRESSION: No acute abnormality is seen. Electronically Signed: Horace Bethea MD at 15:12 EDT ,
== END | disposition home or self-care (01) ==
LOC: RAD 10:37
PROVIDERS: PCP Family Medicine; Referring Provider Internal Medicine Cardiovascular Disease; Visit Provider Internal Medicine Cardiovascular Disease
DX: Z95.5 Presence of coronary angioplasty implant and graft (principal)
CPT/HCPCS: 71046

== ENCOUNTER → 2021-08-30 | Outpatient (CLI) | payer MEDICARE, SELFPAY ==
--- NOTE | 2021-08-30 09:48 | ECHOCS_ITS ---
Reason For Study: ARRYTHMIA Procedure This was a 2D Doppler, Color Flow transthoracic echocardiogram. The study was technically difficult. Exam performed in department. Left Ventricle Normal LV size. Mild concentric left ventricular hypertrophy. Left ventricular systolic function is normal. Stage 1 diastolic dysfunction. No regional wall motion abnormalities noted. Right Ventricle Normal RV size. Normal systolic function. Atria Normal left atrium. Normal right atrium. Mitral Valve Normal mitral valve. Tricuspid Valve Normal tricuspid valve. Unable to estimate RV systolic pressure due to insufficient tricuspid regurgitant envelope. Aortic Valve Normal aortic valve. Pulmonic Valve The pulmonic valve is not well visualized. Great Vessels Mildly dilated aortic root. The pulmonary artery is normal size. Normal inferior vena cava. Pericardium/Pleural No pericardial effusion. Medication 22 gauge I.V. with prn adaptor inserted into left arm. Diluted definity 2ml given slow IV push to enhance endocardial definition. MMode/2D Measurements & Calculations LVIDd: 4.9 cm IVSd: 1.5 cm Ao root diam: 4.1 cm LVIDs: 2.5 cm LVPWd: 1.2 cm RVDd: 3.9 cm FS: 48.7 % LAV(MOD-sp4): 28.7 ml LVAd ap4: 45.2 cm2 SV(MOD-sp4): 115.0 ml LVLd ap4: 10.0 cm EDV(MOD-sp4): 167.3 ml EDV(sp4-el): 173.5 ml LVAs ap4: 22.8 cm2 LVLs ap4: 8.2 cm ESV(MOD-sp4): 52.2 ml ESV(sp4-el): 54.2 ml EF(MOD-sp4): 68.8 % EF(sp4-el): 68.8 % SV(sp4-el): 119.4 ml LA A4 area: 13.6 cm2 LA dimension(2D): 3.8 cm RA A4 area: 17.3 cm2 Doppler Measurements & Calculations MV E max chinedu: 104.0 cm/sec Lat Peak E' Chinedu: 10.1 cm/sec Med Peak E' Chinedu: 7.4 cm/sec MV A max chinedu: 107.6 cm/sec E/E' lat: 10.3 E/E' med: 14.1 MV E/A: 0.97 Ao V2 max: 190.0 cm/sec LV V1 max: 107.3 cm/sec PA V2 max: 88.6 cm/sec Ao max P.4 mmHg LV V1 max P.6 mmHg ECHO/Echo Complete W/ Contrast Interpretation Summary Normal LV size. Left ventricular systolic function is normal. Mild concentric left ventricular hypertrophy. Stage 1 diastolic dysfunction. Mildly dilated aortic root. Contrast injection was performed. Ordering Physician: Prem Minor Referring Physician: Prem Minor Performed By: Vanessa Wiggins RCS
== END | disposition home or self-care (01) ==
PROVIDERS: PCP Family Medicine; Referring Provider Internal Medicine Cardiovascular Disease; Visit Provider Internal Medicine Cardiovascular Disease
DX: I48.0 Paroxysmal atrial fibrillation (principal)
CPT/HCPCS: 93306; Q9957; A4216; C8929

== ENCOUNTER → 2022-02-07 | Outpatient (CLI) | payer MEDICARE, SELFPAY ==
[2022-02-07 13:31] LABS: ALB/GLOB Ratio 1.1 RATIO (0.9-2.4); AST(SGOT) 29 U/L (15-37); Alanine Aminotransfer ALT/SGPT 46 U/L (16-61); Alkaline Phosphatase 63 U/L (45-117); Anion Gap 5 (5-15); BUN 22 mg/dL (7-18); BUN/Creat Ratio 22.7 RATIO (10-20); Calcium,Total 9.5 mg/dL (8.5-10.1); Chloride 107 mmol/L (98-107); Creatinine, Serum 0.97 mg/dL (0.70-1.30); EST Glomerular Filtration Rate 83 mL/min (>60); Est Glom Filt Rate - Afr Amer 100 mL/min (>60); Free T3 2.2 pg/mL (2.18-3.98); Globulin 3.7 g/dL (2.2-4.2); Glucose 112 mg/dL (74-106); Potassium 4.3 mmol/L (3.5-5.1); Protein, Total 7.7 g/dL (6.4-8.2); Sodium Level 141 mmol/L (136-145); T4 Free Direct 1.03 ng/dL (0.76-1.46); Thyroid Stim Hormone (TSH) 1.79 uIU/mL (0.358-3.74)
== END | disposition home or self-care (01) ==
LOC: LAB 11:54
PROVIDERS: PCP Family Medicine; Visit Provider Nurse Practitioner Gerontology
DX: I48.0 Paroxysmal atrial fibrillation (principal); Z79.899 Other long term (current) drug therapy
CPT/HCPCS: 36415; 80053; 84439; 84443; 84481

== ENCOUNTER → 2023-02-18 | Outpatient (CLI) | payer MEDICARE, SELFPAY ==
--- NOTE | 2023-02-18 10:22 | RAD_ITS ---
STUDY: X-RAY CHEST REASON FOR EXAM: Male, 63 years old. Amiodarone TECHNIQUE: PA and lateral COMPARISON: August 07, 2021 FINDINGS: The lungs are clear and expanded. There is no demonstrated pleural abnormality. Normal size heart. Normal mediastinum and inocente. Normal visualized pulmonary arteries. Mildly calcified aortic arch and descending thoracic aorta. Dorsal spine demonstrates degenerative change. Normal visualized ribs, clavicles, and shoulders. There is no demonstrated abnormality of the visualized soft tissue structures of the upper abdomen. RAD/Chest PA and Lateral IMPRESSION: No acute cardiopulmonary pathology Electronically Signed: Woody Bray MD at 21:22 EST ,
[2023-02-18 11:36] LABS: ALB/GLOB Ratio 1.1 RATIO (0.9-2.4); AST(SGOT) 37 U/L (15-37); Alanine Aminotransfer ALT/SGPT 63 U/L (16-61); Albumin, Serum 3.9 g/dL (3.2-5.0); Alkaline Phosphatase 97 U/L (45-117); Anion Gap 4 (5-15); BUN 20 mg/dL (7-18); BUN/Creat Ratio 16.8 RATIO (10-20); Calcium,Total 8.9 mg/dL (8.5-10.1); Chloride 104 mmol/L (98-107); Creatinine, Serum 1.19 mg/dL (0.70-1.30); EST Glomerular Filtration Rate 65 mL/min (>60); Est Glom Filt Rate - Afr Amer 79 mL/min (>60); Free T3 2.1 pg/mL (2.18-3.98); Globulin 3.7 g/dL (2.2-4.2); Glucose 200 mg/dL (74-106); Potassium 4.1 mmol/L (3.5-5.1); Protein, Total 7.6 g/dL (6.4-8.2); Sodium Level 139 mmol/L (136-145); T4 Free Direct 0.94 ng/dL (0.76-1.46); Thyroid Stim Hormone (TSH) 2.15 uIU/mL (0.358-3.74)
== END | disposition home or self-care (01) ==
LOC: RAD 10:15
PROVIDERS: PCP Family Medicine; Referring Provider Nurse Practitioner Gerontology; Visit Provider Nurse Practitioner Gerontology
DX: Z79.899 Other long term (current) drug therapy (principal)
CPT/HCPCS: 36415; 71046; 80053; 84439; 84443; 84481

== ENCOUNTER → 2023-02-25 | Outpatient (CLI) | payer MEDICARE, SELFPAY ==
--- NOTE | 2023-02-25 14:31 | PFTCOMP ---
COMPLETE PULMONARY FUNCTION TEST INTERPRETATION Brief HPI: Patient is a 63-year-old male, currently under the care of Earline Horner, who presents to [facility] for complete pulmonary function tests secondary to diagnosis of high risk med use. Respiratory therapist reports good effort and reproducible results. Interpretation: Forced expiration spirometry shows no large airways obstructive ventilatory defect with an FEV1 of 90% predicted. There is no significant bronchodilator response by strict ATS criteria. Spirograms are of good quality and plateau normally. The respiratory flow volume loop shows a normal pattern. Lung volumes by body plethysmography show a normal total lung capacity at 6.31 L, 84% predicted. All other lung volumes are within normal limits. Diffusion capacity by carbon monoxide is normal at 84% predicted. The airway resistance is normal. Compared to previous pulmonary function tests from 11/30/2020, there has been no significant change. Impression: These pulmonary function tests are grossly within normal limits and show no significant change compared to 2020
== END | disposition home or self-care (01) ==
LOC: PSN 09:17
PROVIDERS: PCP Family Medicine; Referring Provider Nurse Practitioner Gerontology; Visit Provider Nurse Practitioner Gerontology
DX: Z79.899 Other long term (current) drug therapy (principal)
CPT/HCPCS: 94060; 94726; 94729

== ENCOUNTER → 2024-02-24 | Outpatient (CLI) | payer MEDICARE, SELFPAY ==
--- NOTE | 2024-02-24 09:31 | RAD_ITS ---
STUDY: X-RAY CHEST REASON FOR EXAM: Male, 64 years old. Amiodarone TECHNIQUE: PA and lateral views of the chest. COMPARISON: 02/18/2023 FINDINGS: The lungs are clear and expanded. There is no demonstrated pleural abnormality. Normal size heart. Normal mediastinum and inocente. Normal visualized pulmonary arteries. Normal visualized aortic arch and descending thoracic aorta. Normal visualized thoracic spine. Normal visualized ribs, clavicles, and shoulders. There is no demonstrated abnormality of the visualized soft tissue structures of the upper abdomen. RAD/Chest PA and Lateral IMPRESSION: Normal x-ray examination of the chest. Electronically Signed: Jet Wall MD at 9:04 [facility] ,
[2024-02-24 09:54] LABS: Absolute Neutrophil Count 6.2 X10^3/uL (2.0-7.7); Basophil# 0.03 X10^3/uL; Basophil% 0.3 % (0-1); Eosinophil# 0.14 X10^3/uL; Eosinophils% 1.6 % (0-5); Hematocrit 44.4 % (40-54); Hemoglobin 14.2 g/dL (13.0-16.5); Mean Corpuscular Hgb 28.7 pg (27.0-32.0); Mean Corpuscular Volume 89.9 fL (80-94); Mean Platelet Vol. 9.8 fl (6.2-12.0); Monocyte# 0.83 X10^3/uL; Monocyte% 9.2 % (0-10); NRBC Flagged by Analyzer 0 % (0-5); Neutrophil # 6.15 X10^3/uL (2.7-7.7); Neutrophil % 68.5 % (47-70); Platelet Count 253 K/mm3 (150-450); RBC Distribution Width SD 42.9 fl (35.1-43.9); Red Blood Count 4.94 M/mm3 (4.6-6.2)
[2024-02-24 10:39] LABS: ALB/GLOB Ratio 1.3 RATIO (0.9-2.4); AST(SGOT) 12 U/L (15-37); Alanine Aminotransfer ALT/SGPT 31 U/L (16-61); Albumin, Serum 3.9 g/dL (3.2-5.0); Alkaline Phosphatase 72 U/L (45-117); Anion Gap 5 (5-15); BUN 21 mg/dL (7-18); BUN/Creat Ratio 23.4 RATIO (10-20); Calcium,Total 8.8 mg/dL (8.5-10.1); Chloride 108 mmol/L (98-107); EST Glomerular Filtration Rate 90 mL/min (>60); Est Glom Filt Rate - Afr Amer 109 mL/min (>60); Globulin 3.1 g/dL (2.2-4.2); Glucose 162 mg/dL (74-106); Potassium 4.1 mmol/L (3.5-5.1); Sodium Level 140 mmol/L (136-145)
== END | disposition home or self-care (01) ==
LOC: LAB 09:12
PROVIDERS: PCP Family Medicine; Referring Provider Nurse Practitioner Gerontology; Visit Provider Nurse Practitioner Gerontology
DX: Z79.899 Other long term (current) drug therapy (principal); I10 Essential (primary) hypertension
CPT/HCPCS: 36415; 71046; 80053; 84443; 85025

== ENCOUNTER 2024-04-03 11:20 | Inpatient (IN) | payer MEDICARE, SELFPAY ==
[2024-04-03] VITALS (13 sets, daily range): BP systolic 85–141; BP diastolic 50–72; PULSE 48–77; RESP 16–18; TEMP 36.8–37.2; O2SAT 94–99; BMI 36.5; BMI 37.0
--- NOTE | 2024-04-03 11:38 | EKG12_ITS ---
Test Reason : REPEAT Blood Pressure : */* mmHG Vent. Rate : 48 BPM Atrial Rate : * BPM P-R Int : * ms QRS Dur : 96 ms QT Int : 512 ms P-R-T Axes : * 29 38 degrees QTcB Int : 457 ms Atrial fibrillation with slow ventricular response with a competing junctional pacemaker Abnormal ECG Confirmed by GLO SCHREIBER, JOSE ALFREDO ([id number]), school photograph editor SOTERO DALTON ([id number]) on 04/05/2024 8:34:09 AM Referred By: Confirmed By: JOSE ALFREDO CODY MD
--- NOTE | 2024-04-03 11:40 | EX.ED.DYSGE1 ---
HPI <TYLER Edouard - Last Filed: 04/03/24 15:55> History of Present Illness Chief Complaint: Numb/Ting Narrative Narrative: Patient presenting today due to an episode of weakness that occurred this morning. He was outside standing, woodworking when he felt diaphoretic, weak, lightheaded, short of breath, and nauseous. His became concerned and brought him in for evaluation. He reports that his symptoms are improving. His blood pressure is low here at 87/62, he reports his blood pressure occasionally is low but that this is unusual for him. He did take his antihypertensives this morning. He reports he experiences occasional left-sided chest pains around once per week, he is not currently having any chest pain. He reports chronic numbness to the left side of his face that he has had since having a stroke 12 years ago. He has chronic right sided deficit from his stroke 12 years ago. He denies fevers, chills, recent illness, abdominal pain, and vomiting. He has a PMH of CVA, CAD with stent placement, atrial fibrillation on Eliquis, HLD, T2DM, and HTN. PFSH <TYLER Edouard - Last Filed: 04/03/24 15:55> [facility] Medical History Dilated aortic root Atherosclerosis of coronary artery of [place] heart without angina pectoris COVID-19 (03/2020) NSVT (nonsustained ventricular tachycardia) H/O ischemic right MCA stroke (2011) Ocular toxoplasmosis Hyperlipidemia Type 2 diabetes mellitus without complication VIRGIL on CPAP Paroxysmal atrial fibrillation Hemiparesis Gastroesophageal reflux disease Essential hypertension Home Medications ?Medication ?Instructions ?Recorded ?Last Taken ?Type metformin 500 mg tablet 1,000 mg (2 x 500 mg) PO BID blood 04/05/20 04/03/20 Rx sugar #0 tabs atorvastatin 40 mg tablet 40 mg PO QHS cholesterol 02/18/23 Unknown History apixaban 5 mg tablet 5 mg PO BID blood thinner #180 tabs 03/25/23 Unknown Rx lisinopril 40 mg tablet 40 mg PO DAILY blood pressure #90 01/07/24 Unknown Rx tabs amiodarone 200 mg tablet 100 mg (1/2 x 200 mg) PO DAILY 02/23/24 Unknown Rx heart #90 tabs carvedilol 6.25 mg tablet 6.25 mg PO BID heart #180 TABLETS 02/23/24 Unknown Rx verapamil 240 mg tablet,extended 240 mg PO QHS heart 04/03/24 Unknown History release cefdinir 300 mg capsule 300 mg PO BID #10 caps 04/04/24 Unknown Rx Allergy/AdvReac Type Severity Reaction Status Date / Time No Known Allergies Allergy Verified 02/23/24 08:48 Family History Father Heart disease Myocardial infarction Surgical History History of coronary artery stent placement (04/04/20) History of YAG laser capsulotomy of lens of right eye History of vitrectomy History of left inguinal hernia repair Social History (Updated 04/03/24 @ 16:39 by Janay Chauhan) Smoking Status: Never smoker alcohol intake: never substance use type: does not use caffeine: No ROS <TYLER Edouard - Last Filed: 04/03/24 15:55> ROS ED Constitutional Constitutional ED: Denies chills or fever(s) Cardiovascular Cardiovascular: Denies chest pain Respiratory/Chest Respiratory/Chest: Reports dyspnea; Denies cough Gastrointestinal Gastrointestinal: Reports nausea; Denies abdominal pain or vomiting Genitourinary Genitourinary ED: Denies dysuria, hematuria or urinary urgency Musculoskeletal Musculoskeletal: Denies arthralgias or myalgias Integumentary Denies rash Neurologic Neurologic: Reports weakness and other Details: Chronic paresthesias left side of the face EXAM <TYLER Edouard - Last Filed: 04/03/24 15:55> Physical Exam Const Vital Signs: 04/03/24 14:00 04/03/24 15:00 04/03/24 15:24 Temperature 98.9 F Temperature Source Pulse Rate 52 L 52 L 54 L Respiratory Rate 18 18 17 Blood Pressure 112/60 105/52 L 113/50 L Blood Pressure Mean 77 69 71 Pulse Ox 95 95 96 Oxygen Delivery Method Room Air Room Air 04/03/24 15:25 04/03/24 15:26 Temperature 98.9 F 98.9 F Temperature Source Oral Oral Pulse Rate 54 L 54 L Respiratory Rate 16 16 Blood Pressure 113/50 L 113/50 L Blood Pressure Mean 71 71 Pulse Ox 97 97 Oxygen Delivery Method Room Air Room Air Positive well nourished, well developed and no apparent distress General Appearance ED: well developed HEENT Reports normocephalic, head/scalp atraumatic and dry mucous membranes Mouth ED: Yes dry mucous membranes Mouth: dry mucous membranes Eyes PERRL and EOMs intact bilaterally Neck full ROM and supple Chest Wall inspection of chest normal Resp normal respiratory effort and clear to auscultation bilaterally Cardio regular rate and regular rhythm GI soft to palpation, non-tender, non-distended and no masses Back/Spine normal ROM and normal to inspection Extremity normal to inspection and full ROM Neuro oriented x3, CN's II-XII intact bilaterally, moves all extremities, no focal motor deficits and no sensory deficits noted Sensorium / Orientation: awake and alert Psych mental status grossly normal and thought process normal Skin no rashes or lesions noted and no wounds <Dr. Fátima Luo DO - Last Filed: 04/04/24 13:33> Physical Exam Const Vital Signs: 04/03/24 14:00 04/03/24 15:00 04/03/24 15:24 Temperature 98.9 F Temperature Source Pulse Rate 52 L 52 L 54 L Respiratory Rate 18 18 17 Blood Pressure 112/60 105/52 L 113/50 L Blood Pressure Mean 77 69 71 Pulse Ox 95 95 96 Oxygen Delivery Method Room Air Room Air 04/03/24 15:25 04/03/24 15:26 Temperature 98.9 F 98.9 F Temperature Source Oral Oral Pulse Rate 54 L 54 L Respiratory Rate 16 16 Blood Pressure 113/50 L 113/50 L Blood Pressure Mean 71 71 Pulse Ox 97 97 Oxygen Delivery Method Room Air Room Air [facility] <TYLER Edouard - Last Filed: 04/03/24 15:55> [facility] Narrative Medical decision making narrative: Patient presenting today due to an episode of weakness, diaphoresis, lightheadedness, shortness of breath that occurred while he was woodworking this morning. He has been feeling progressively more weak over the last few days. He does report slight improvement of his symptoms. He is hypotensive here at 87/62. Broad workup obtained, he has a slight leukocytosis at 11.4, other than that his CBC is unremarkable. He does have an AMBER with a creatinine of 1.49 and BUN of 27. He does appear dry and has a lactic acid of 3.3. His UA shows 3+ bacteria with 25 leukocytes, he does have chronic urinary retention. Given his elevated lactic acid and slight leukocytosis, we will treat him for UTI with Rocephin. He was given 3 L IV fluids. His blood pressure did improve to 112/60. I do feel he would benefit from admission to the hospital for AMBER, UTI, dehydration, generalized weakness. I spoke with hospitalist and patient admitted in stable condition. Lab Data Attestation: I reviewed the patient's lab results. Lab results narrative: WBC 11.4, BUN 27, creatinine 1.49, glucose 274, lactic acid 3.3, UA shows 25 leukocytes, 3+ bacteria, negative nitrites, negative WBCs Labs: Laboratory Results - last 24 hr 04/03/24 04/03/24 12:37 13:50 Sodium 137 Potassium 4.7 Chloride 108 H Carbon Dioxide 21.0 Anion Gap 8 BUN 27 H Creatinine 1.27 Estim Creat Clear Calc 77.76 Est GFR (MDRD) Af Amer 73 Est GFR (MDRD) Non-Af 60 BUN/Creatinine Ratio 21.3 H Glucose 207 H Lactic Acid 3.3 H* Calcium 8.7 Troponin I High Sens 6 Radiography X-Ray: Read by ED Physician Diagnostic Testing: Clinical Impression(s) from Imaging Studies Chest X-Ray 04/03/24 11:55 IMPRESSION: No radiographic evidence of acute cardiopulmonary disease. Electronically Signed: Chucky Nixon MD at 13:25 EST , Abdomen/Pelvis CT 04/03/24 12:35 IMPRESSION: 1. Punctate nonobstructing stones in the left kidney without evidence of hydronephrosis. 2. Otherwise no focal acute inflammatory process. 3. Nonspecific mild bilateral perinephric stranding. Electronically Signed: Chucky Nixon MD at 14:51 EST , EKG Initial EKG: Comments: 52 bpm, atrial fibrillation, no ST elevation Repeat EKG shows 48 bpm, atrial fibrillation, no ST elevation <Dr. Fátima Luo, DO - Last Filed: 04/04/24 13:33> [facility] Narrative Medical decision making narrative: Patient presenting today due to an episode of weakness, diaphoresis, lightheadedness, shortness of breath that occurred while he was woodworking this morning. He has been feeling progressively more weak over the last few days. He does report slight improvement of his symptoms. He is hypotensive here at 87/62. Broad workup obtained, he has a slight leukocytosis at 11.4, other than that his CBC is unremarkable. He does have an AMBER with a creatinine of 1.49 and BUN of 27. He does appear dry and has a lactic acid of 3.3. His UA shows 3+ bacteria with 25 leukocytes, he does have chronic urinary retention. Given his elevated lactic acid and slight leukocytosis, we will treat him for UTI with Rocephin. He was given 3 L IV fluids. His blood pressure did improve to 112/60. I do feel he would benefit from admission to the hospital for AMBER, UTI, dehydration, generalized weakness. I spoke with hospitalist and patient admitted in stable condition. I have personally performed a face to face assessment of the patient and have reviewed the ROZ Note. I performed a substantive portion of the visit including all aspects of the following. My randle findings include: History is patient is a 64-year-old male presenting after no syncopal episode. Upon arrival patient is hypotensive. It sounds like patient has having symptomatic hypotension prior to arrival with paleness, diaphoresis, sweating and generalized weakness. Reports some chronic urinary frequency but denies any acute change in this. No fevers or chills reported. No URI symptoms. States he has some chronic left-sided chest pain which is chronic and has not had any chest pain today. Does have a history of prior stroke with some residual right deficits and left facial numbness but no acute change in that today. He does not have focal neurologic deficits on exam I do not think this is an acute stroke. Patient is hypotensive and AMBER. Creatinine is 1.49 when his baseline is 0.9. He is given 3 L of IV fluid in the emergency room and sepsis workup is initiated. Concern for hypotension being volume depletion, medication side effect (is bradycardic in the emergency room and is on amiodarone and carvedilol as well as lisinopril and verapamil), versus sepsis. Trying to show that this bradycardia is chronic for him and not acute. Patient has a mild leukocytosis of 11.4. He is hyperglycemic with glucose of 274. His lactate is elevated at 3.3 and on repeat 3.5 however clinic the patient appears to be improving. High sensitive troponin 8 and then 6. Suspicion for ACS as a cause of his symptoms. I do not think the bradycardia is causing his hypotension. Urinalysis does show 3+ bacteria and concern for possible UTI. Urine culture sent and patient is started on IV Rocephin. CT abdomen pelvis is obtained as patient does report that he has had some mild back pain over the past few days. There is nonspecific wall perinephric stranding and nonobstructive stones. No other acute process. Chest x-ray is not showing acute process. This is reviewed by myself as well as radiology. Given his hypotension, Lactic acidosis, concern for UTI and weakness patient will be admitted. Case discussed with hospitalist. Other additions or changes: [None] Lab Data Labs: Laboratory Results - last 24 hr 04/03/24 04/03/24 12:37 13:50 Sodium 137 Potassium 4.7 Chloride 108 H Carbon Dioxide 21.0 Anion Gap 8 BUN 27 H Creatinine 1.27 Estim Creat Clear Calc 77.76 Est GFR (MDRD) Af Amer 73 Est GFR (MDRD) Non-Af 60 BUN/Creatinine Ratio 21.3 H Glucose 207 H Lactic Acid 3.3 H* Calcium 8.7 Troponin I High Sens 6 Radiography Diagnostic Testing: Clinical Impression(s) from Imaging Studies Chest X-Ray 04/03/24 11:55 IMPRESSION: No radiographic evidence of acute cardiopulmonary disease. Electronically Signed: Chucky Nixon MD at 13:25 EST , Abdomen/Pelvis CT 04/03/24 12:35 IMPRESSION: 1. Punctate nonobstructing stones in the left kidney without evidence of hydronephrosis. 2. Otherwise no focal acute inflammatory process. 3. Nonspecific mild bilateral perinephric stranding. Electronically Signed: Chucky Nixon MD at 14:51 EST , Discharge Plan Dx/Rx/DC Orders Clinical Impression: Weakness, Dehydration, Hypotension, AMBER (acute kidney injury), UTI (urinary tract infection) Disposition Disposition: Acute Care Hospital [facility] Discharge Date/Time: 04/03/24 16:22
[2024-04-03] MEDS: 0.9% Normal Saline (1000mL) 1,000 ML 999 ML IV ×3 (11:49→13:47)
[2024-04-03 11:55] LABS: Absolute Neutrophil Count 7.7 X10^3/uL (2.0-7.7); Basophil# 0.05 X10^3/uL; Basophil% 0.4 % (0-1); Eosinophil# 0.12 X10^3/uL; Hematocrit 43.3 % (40-54); Hemoglobin 14.2 g/dL (13.0-16.5); Mean Corp Hgb Conc 32.8 g/dL (32-36); Mean Corpuscular Hgb 28.9 pg (27.0-32.0); Mean Platelet Vol. 9.7 fl (6.2-12.0); Monocyte# 1.09 X10^3/uL; Monocyte% 9.5 % (0-10); NRBC Flagged by Analyzer 0 % (0-5); Neutrophil # 7.71 X10^3/uL (2.7-7.7); Neutrophil % 67.6 % (47-70); Platelet Count 307 K/mm3 (150-450); RBC Distribution Width CV 13.1 % (11.6-14.6); RBC Distribution Width SD 42.4 fl (35.1-43.9); Red Blood Count 4.92 M/mm3 (4.6-6.2); White Blood Count 11.4 K/mm3 (4.4-11.0)
--- NOTE | 2024-04-03 11:55 | RAD_ITS ---
INDICATION: SOB EXAMINATION/TECHNIQUE: X-RAY - XR Chest 2 Views COMPARISON: Prior study dated: 01/24/2024 FINDINGS: LINES/DEVICES: None. LUNGS: No consolidation, edema or effusion. No pneumothorax. MEDIASTINUM AND CARDIOVASCULAR STRUCTURES: Cardiac silhouette not enlarged. Central airways and mediastinal contour are unremarkable. BONES AND SOFT TISSUES: Unremarkable. RAD/Chest PA and Lateral IMPRESSION: No radiographic evidence of acute cardiopulmonary disease. Electronically Signed: Chucky Nixon MD at 13:25 EST ,
[2024-04-03 12:14] LABS: Anion Gap 9 (5-15); BUN 27 mg/dL (7-18); BUN/Creat Ratio 18.1 RATIO (10-20); Calcium,Total 9.5 mg/dL (8.5-10.1); Chloride 100 mmol/L (98-107); Creatinine, Serum 1.49 mg/dL (0.70-1.30); EST Glomerular Filtration Rate 50 mL/min (>60); Est Glom Filt Rate - Afr Amer 61 mL/min (>60); Estimated Creatinine Clearance 65.83 ml/min; Glucose 274 mg/dL (74-106); Potassium 4.4 mmol/L (3.5-5.1); Sodium Level 136 mmol/L (136-145); Troponin-I HS (w/2H Reflex) 8 pg/mL (3.0-78.0)
[2024-04-03 12:26] LABS: Color, Urine Yellow (Yellow); Glucose, Dipstick Normal (Normal); Ketone-Dipstick 5 mg/dl (Negative); Leukocyte Esterase-Dipstick 25 /ul (Negative); Nitrite-Dipstick Negative (Negative); Occult Blood-Urine 10 /ul (Negative); Protein-Dipstick 30 mg/dl (Negative); Specific Gravity, Urine 1.025 (1.002-1.030); Urine Bilirubin Dipstick Negative (Negative); Urine Clarity Sl. Cloudy (Clear); Urine Urobilinogen 4 mg/dl (Normal)
[2024-04-03 12:32] LABS: Amorphous Sediment 2+; Bacteria 3+ /hpf (None Seen); Mucous, Urine 2+ /hpf (<or=2+); Red Blood Cells-Urine 0-5 SEEN /hpf (0-5); Squamous Epithelial Cells - UA 0-5 SEEN /hpf (0-5); White Blood Cells 0-5 SEEN /hpf (0-5)
--- NOTE | 2024-04-03 12:35 | CT_ITS ---
INDICATION: urinary retention EXAMINATION: CT ABDOMEN AND PELVIS WITHOUT CONTRAST - CT Abdomen And Pelvis W/O Contrast Injection TECHNIQUE: Helically acquired images were obtained of the abdomen and pelvis without oral or IV contrast. The protocol utilizes one or more of the following dose reduction techniques: automated exposure control, adjustment of mA and/or kV according to patient size,and/or use of iterative reconstruction technique. IV Contrast dosage and agent: None. Oral contrast: None. RADIATION DOSAGE (If Supplied By Facility): CTDIvol = ( 22.46 ) mGy, DLP = ( 1206.53 ) mGycm COMPARISON: No relevant prior comparison study available FINDINGS: LOWER CHEST: Lung bases are clear. No cardiomegaly or pericardial effusion. Coronary calcifications. LIVER: Hepatomegaly. No focal lesion is seen without contrast. GALLBLADDER AND BILIARY TREE: No calcified gallstones. No gallbladder distension or wall edema. No intra- or extrahepatic biliary ductal dilation. PANCREAS: No focal cystic or solid mass. SPLEEN: Normal size without focal cystic or solid mass. ADRENAL GLANDS: No nodules. KIDNEYS AND URETERS: Punctate nonobstructing stones in the left kidney without evidence of hydronephrosis. No evidence of ureteral stone. Nonspecific mild bilateral perinephric stranding. PERITONEUM: No ascites or free air. No other fluid collection. BOWEL: The appendix is not visualized. No stomach or bowel distension. Fecal retention. No evidence of acute diverticulitis. LYMPH NODES: No enlarged mesenteric or retroperitoneal lymph nodes. VESSELS: Atherosclerotic calcifications of the abdominal aorta and both iliac arteries without evidence of aneurysm. URINARY BLADDER: The bladder is not well distended. REPRODUCTIVE ORGANS: No pelvic masses. ABDOMINAL WALL: No discrete abdominal or pelvic wall hernia. BONES: No lytic or blastic abnormality. CT/Abdomen/Pelvis without Cont IMPRESSION: 1. Punctate nonobstructing stones in the left kidney without evidence of hydronephrosis. 2. Otherwise no focal acute inflammatory process. 3. Nonspecific mild bilateral perinephric stranding. Electronically Signed: Chucky Nixon MD at 14:51 EST ,
[2024-04-03 12:51] LABS: Magnesium 1.9 mg/dL (1.6-2.6)
--- NOTE | 2024-04-03 13:03 | EKG12_ITS ---
Test Reason : CP Blood Pressure : */* mmHG Vent. Rate : 52 BPM Atrial Rate : * BPM P-R Int : * ms QRS Dur : 96 ms QT Int : 488 ms P-R-T Axes : * 30 48 degrees QTcB Int : 453 ms Atrial fibrillation with slow ventricular response Abnormal ECG Junctional rhythm Confirmed by GLO SCHREIBER, JOSE ALFREDO ([id number]), research editor SOTERO DALTON ([id number]) on 04/05/2024 8:34:30 AM Referred By: Confirmed By: JOSE ALFREDO CODY MD
[2024-04-03 13:26] LABS: Lactic Acid 3.3 mmol/L (0.4-1.9)
[2024-04-03] MEDS: Ceftriaxone 1 GM/50 ML BAG IV (13:47)
[2024-04-03 13:48] LABS: Reflex Troponin-HS? (from REC) Y
[2024-04-03 14:20] LABS: Troponin-I HS 6 pg/mL (3.0-78.0)
--- NOTE | 2024-04-03 15:36 | PCM.HP.STD ---
HPI - General General Date of Admission: 04/03/24 Date of Service: 04/03/24 Chief Complaint: Presyncopal symptoms HPI Narrative CHUCKY FOSTER, is a 64 M who presented to [facility] ED on 04/03/2024 with presyncopal symptoms. Patient has significant history of CAD with stenting, nonsustained VT, paroxysmal A-fib, hypertension and hyperlipidemia. He lives at home with his . They were doing some woodworking today when patient noted that he felt lightheaded, dizzy, diaphoretic and nauseous. He did not pass out but given the symptoms, brought him in for further evaluation. In the ED he was found to be hypotensive to the 80s over 60s. He also had mild sinus bradycardia to the mid 50s but was otherwise afebrile and stable on room air. Labs were notable for creatinine 1.49 (baseline around 0.9) and lactate 3.3. UA showed 25 leukocyte esterase, negative nitrites but 3+ bacteria. Chest x-ray was unremarkable. CT abdomen pelvis showed nonspecific mild bilateral perinephric stranding, nonobstructing stones in the left kidney with no evidence of hydronephrosis, no other abnormalities. Patient was given 3 L of normal saline in the ED with good improvement in the blood pressure to the 110s over 50s. Hospitalist was then contacted for admission. I saw the patient at bedside in the ED, was present. Patient was mildly fatigued appearing but otherwise laying back comfortably in bed and in no acute distress. He noted feeling improved after IV fluids. He follows with [facility] and last office visit was on 02/22. Was noted that his blood pressure was elevated at that office visit so his hydrochlorothiazide dose was increased. He denies increased urine output since then but does state that he has felt somewhat weaker and more tired since then and agrees with this. He currently denies any pain or discomfort. He does have a reported history of urinary retention but states he has been urinating well recently and feels like he is emptying his bladder. Denies any other concerns at this time. FOR[facility]LY [facility], LATER [facility] Medical History Dilated aortic root Atherosclerosis of coronary artery of [place] heart without angina pectoris COVID-19 (03/2020) NSVT (nonsustained ventricular tachycardia) H/O ischemic right MCA stroke (2011) Ocular toxoplasmosis Hyperlipidemia Type 2 diabetes mellitus without complication VIRGIL on CPAP Paroxysmal atrial fibrillation Hemiparesis Gastroesophageal reflux disease Essential hypertension Home Medications ?Medication ?Instructions ?Recorded ?Last Taken ?Type metformin 500 mg tablet 1,000 mg (2 x 500 mg) PO BID blood 04/05/20 04/03/20 Rx sugar #0 tabs atorvastatin 40 mg tablet 40 mg PO QHS cholesterol 02/18/23 Unknown History apixaban 5 mg tablet 5 mg PO BID blood thinner #180 tabs 03/25/23 Unknown Rx lisinopril 40 mg tablet 40 mg PO DAILY blood pressure #90 01/07/24 Unknown Rx tabs amiodarone 200 mg tablet 100 mg (1/2 x 200 mg) PO DAILY 02/23/24 Unknown Rx heart #90 tabs carvedilol 6.25 mg tablet 6.25 mg PO BID heart #180 TABLETS 02/23/24 Unknown Rx hydrochlorothiazide 25 mg tablet 12.5 mg PO BID diuretic 04/03/24 Unknown History verapamil 240 mg tablet,extended 240 mg PO QHS heart 04/03/24 Unknown History release Allergy/AdvReac Type Severity Reaction Status Date / Time No Known Allergies Allergy Verified 02/23/24 08:48 Family History Father Heart disease Myocardial infarction Surgical History History of coronary artery stent placement (04/04/20) History of YAG laser capsulotomy of lens of right eye History of vitrectomy History of left inguinal hernia repair Social History (Updated 04/03/24 @ 16:39 by Janay Chauhan) Smoking Status: Never smoker alcohol intake: never substance use type: does not use caffeine: No ROS Constitutional Constitutional: Reports fatigue; Denies chills, fever(s) or weakness Eyes Eyes: Denies change in vision Cardiovascular Cardiovascular: Denies chest pain, edema or lightheadedness Respiratory/Chest Respiratory/Chest: Denies shortness of breath at rest Gastrointestinal Gastrointestinal: Denies abdominal pain Genitourinary Genitourinary: Denies burning urination, difficulty urinating, dysuria, urinary frequency or urinary urgency Musculoskeletal Musculoskeletal: Denies arthralgias or myalgias Neurologic Neurologic: Denies dizziness, focal weakness, headache(s), numbness or paresthesias Vital Signs Vital Signs Vital Signs: 04/03/24 11:21 04/03/24 11:31 04/03/24 11:38 Temperature 98.4 F Temperature Source Oral Pulse Rate 55 L Respiratory Rate 18 Blood Pressure 87/62 L Blood Pressure Mean 70 Pulse Ox 94 Oxygen Delivery Method Room Air Room Air 04/03/24 12:20 04/03/24 13:00 04/03/24 14:00 Temperature Temperature Source Pulse Rate 57 L 48 L 52 L Respiratory Rate 18 16 18 Blood Pressure 85/55 L 95/58 L 112/60 Blood Pressure Mean 65 70 77 Pulse Ox 95 99 95 Oxygen Delivery Method Room Air Room Air Room Air 04/03/24 15:00 04/03/24 15:24 04/03/24 15:25 Temperature 98.9 F 98.9 F Temperature Source Oral Pulse Rate 52 L 54 L 54 L Respiratory Rate 18 17 16 Blood Pressure 105/52 L 113/50 L 113/50 L Blood Pressure Mean 69 71 71 Pulse Ox 95 96 97 Oxygen Delivery Method Room Air Room Air 04/03/24 15:26 Temperature 98.9 F Temperature Source Oral Pulse Rate 54 L Respiratory Rate 16 Blood Pressure 113/50 L Blood Pressure Mean 71 Pulse Ox 97 Oxygen Delivery Method Room Air Weight Weight: 122.2 kg Body Mass Index (BMI) 36.5 Physical Exam Const alert, oriented x3 and no apparent distress Constitutional Narrative: Pleasant elderly male, class II obesity, mildly fatigued appearing, otherwise laying back comfortably in bed, conversing normally, in no acute distress. General Appearance: cooperative and comfortable HEENT normocephalic, head/scalp atraumatic, hearing grossly normal bilaterally, nasal mucous membranes and turbinates normal and moist oral mucous membranes Eyes PERRL, EOMs intact bilaterally and conjunctivae normal Neck full ROM Chest inspection of chest normal Resp normal respiratory effort, normal air movement, no use of accessory muscles and clear to auscultation bilaterally Cardio regular rate, regular rhythm, no murmurs and peripheral pulses 2+ throughout GI normal to inspection, nondistended, normoactive bowel sounds, soft to palpation, non-tender and non-distended Back/Spine normal ROM Extremity normal to inspection, full ROM and no pedal edema Skin no rashes or lesions noted Psych mental status grossly normal Results Lab / Micro Data 04/03/24 11:30 04/03/24 13:50 Labs: Laboratory Results - last 24 hr 04/03/24 11:30: WBC 11.4 H, RBC 4.92, Hgb 14.2, Hct 43.3, MCV 88.0, MCH 28.9, MCHC 32.8, RDW Std Deviation 42.4, RDW Coeff of [place] 13.1, Plt Count 307, MPV 9.7, Immature Gran % (Auto) 0.500, Neut % (Auto) 67.6, Lymph % (Auto) 21.0, [place] % (Auto) 9.5, Eos % (Auto) 1.0, Baso % (Auto) 0.4, Absolute Neuts (auto) 7.7, Absolute Lymphs (auto) 2.40, Nucleated RBC % 0, Sodium 136, Potassium 4.4, Chloride 100, Carbon Dioxide 26.0, Anion Gap 9, BUN 27 H, Creatinine 1.49 H, Estim Creat Clear Calc 65.83, Est GFR (MDRD) Af Amer 61, Est GFR (MDRD) Non-Af 50 L, BUN/Creatinine Ratio 18.1, Glucose 274 H, Calcium 9.5, Magnesium 1.9, Troponin I High Sens 8 04/03/24 12:15: Urine Color Yellow, Urine Clarity Sl. Cloudy, Urine pH 5.0, Ur Specific [place] 1.025, Urine Protein 30 H, Urine Glucose (UA) Normal, Urine Ketones 5 H, Urine Occult Blood 10 H, Urine Nitrite Negative, Urine Bilirubin Negative, Urine Urobilinogen 4 H, Ur Leukocyte Esterase 25 H, Urine RBC 0-5 SEEN, Urine WBC 0-5 SEEN, Ur Squamous Epith Cells 0-5 SEEN, Amorphous Sediment 2+, Urine Bacteria 3+, Urine Mucus 2+ 04/03/24 12:37: Lactic Acid 3.3 H* 04/03/24 13:50: Troponin I High Sens 6 Micro: Microbiology 04/03/24 12:10 Mucosa - Nose SARS-CoV-2, Influenza & RSV (PCR) - Final Imaging Radiology Impression Chest X-Ray 04/03/24 11:55 IMPRESSION: No radiographic evidence of acute cardiopulmonary disease. Electronically Signed: Chucky Nixon MD at 13:25 EST , Abdomen/Pelvis CT 04/03/24 12:35 IMPRESSION: 1. Punctate nonobstructing stones in the left kidney without evidence of hydronephrosis. 2. Otherwise no focal acute inflammatory process. 3. Nonspecific mild bilateral perinephric stranding. Electronically Signed: Chucky Nixon MD at 14:51 EST , Assessment & Plan Assessment/Plan (1) AMBER (acute kidney injury): (2) Hypotension: (3) Dehydration: PLAN: Plan Patient is a 64-year-old male who presented to [facility] ED on 04/03/2024 with presyncopal symptoms. 1. AMBER with dehydration and hypotension suspected secondary to overmedication ? Admit under inpatient status to PCU. 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 Creatinine 1.49 on admit, baseline 0.9. Hypotensive to the 80s over 50s in the ED. Given 3 L of normal saline with improvement in blood pressure to normal range. Monitor daily BMP and urine output. Holding home hydrochlorothiazide and lisinopril for now. Patient with history of dilated aortic root as noted below and plan was for outpatient echo in early April. Given presyncopal symptoms, will have echo done during this hospitalization. 2. Elevated lactic acid ? Lactate 3.3 on admit. Suspected this was due to dehydration and hypotension as noted above. However lactate mildly worsened to 3.5 after IV fluid resuscitation for unclear reason. Repeat lactate ordered, will follow-up. 3. Concern for UTI ? UA on admit showed only 25 leukocyte esterase and negative nitrates but did show 3+ bacteria. Patient denies any UTI symptoms but does have history of urinary retention. CT abdomen pelvis on admit showed mild perinephric stranding. Will treat with IV ceftriaxone for now. Follow-up urine culture. 4. History of CAD with stenting, nonsustained VT, paroxysmal A-fib, hypertension, hyperlipidemia, history of CVA, history of dilated aortic root ? Follows with [place] [facility]. EKG on admit showed normal sinus rhythm with no ST changes. Had hydrochlorothiazide dose increased from 12.5 mg daily to 12.5 mg twice daily at last outpatient visit. Holding hydrochlorothiazide and lisinopril for now as noted above and will likely need to decrease back to lower dose on discharge. Continue home amiodarone, Coreg, verapamil and Eliquis. 5. Type 2 diabetes mellitus ? Hold home metformin. Will treat with sliding scale insulin with meals while inpatient, adjust as needed. 6. Class II obesity ? BMI 37 on admit. Complicates hospital course, care and prognosis. DVT prophylaxis: Not indicated, on Eliquis CODE STATUS: Full code, verified Expected disposition: Home, 2 to 3 days Total clinical time spent by myself addressing the patient's medical issues, reviewing all the data, and collaborating with patient's care team: 55 minutes. Charges/Coding Visit Charges Inpatient E&M: 17094 Init Hosp L2
[2024-04-03 16:39] LABS: Anion Gap 8 (5-15); BUN 27 mg/dL (7-18); BUN/Creat Ratio 21.3 RATIO (10-20); Calcium,Total 8.7 mg/dL (8.5-10.1); Chloride 108 mmol/L (98-107); Creatinine, Serum 1.27 mg/dL (0.70-1.30); EST Glomerular Filtration Rate 60 mL/min (>60); Est Glom Filt Rate - Afr Amer 73 mL/min (>60); Estimated Creatinine Clearance 77.76 ml/min; Glucose 207 mg/dL (74-106); Potassium 4.7 mmol/L (3.5-5.1); Sodium Level 137 mmol/L (136-145)
[2024-04-03 16:42] LABS: Reflex Lactate? Y
[2024-04-03] MEDS: Ondansetron 4 MG/2 ML Vial IV (16:55)
[2024-04-03 17:49] LABS: Lactic Acid 3.5 mmol/L (0.4-1.9)
[2024-04-03] MEDS: APIXABAN 5 MG TABLET PO (21:47)
[2024-04-03] MEDS: Atorvastatin Calcium 40 MG Tablet PO (21:47)
[2024-04-03] MEDS: Carvedilol 6.25 MG Tablet PO (21:47)
[2024-04-03 23:00] LABS: Lactic Acid 2.2 mmol/L (0.4-1.9)
[2024-04-04 02:11] LABS: Reflex Lactate? Y
[2024-04-04 02:29] VITALS: BP 116/58; PULSE 63; RESP 18; TEMP 36.6; O2SAT 94
[2024-04-04 03:08] LABS: Lactic Acid 1.6 mmol/L (0.4-1.9)
[2024-04-04 06:31] LABS: Hematocrit 36.8 % (40-54); Hemoglobin 12.4 g/dL (13.0-16.5); Mean Corp Hgb Conc 33.7 g/dL (32-36); Mean Corpuscular Hgb 29.8 pg (27.0-32.0); Mean Corpuscular Volume 88.5 fL (80-94); Platelet Count 221 K/mm3 (150-450); RBC Distribution Width SD 42.3 fl (35.1-43.9); Red Blood Count 4.16 M/mm3 (4.6-6.2); White Blood Count 9.7 K/mm3 (4.4-11.0)
[2024-04-04 08:20] VITALS: BP 140/85; PULSE 60; RESP 14; TEMP 36.9; O2SAT 95
[2024-04-04] MEDS: Amiodarone 200 MG Tablet 100 MG PO (08:22)
[2024-04-04] MEDS: Ceftriaxone 1 GM/50 ML BAG IV (08:22)
[2024-04-04] MEDS: APIXABAN 5 MG TABLET PO (08:23)
[2024-04-04] MEDS: Carvedilol 6.25 MG Tablet PO (08:23)
--- NOTE | 2024-04-04 12:43 | DCINST_ITS ---
Discharge Instructions Diet Discharge Diet: 1800 Calorie Control Diet DC O2, CPAP, BIPAP needs Home O2 Discharge instructions: No Dressing / Incision Discharge Activity: Return to Normal Activity Weight Bearing Status: Full weight bearing Follow Up Care Test Results: Test results from this visit will be discussed in further detail at your follow- up appointment, if applicable. Discharge Plan Admission Admit Date/Time: 04/03/24 15:40 Primary Reason for Your Visit: Hypotension, urinary tract infection, acute kidney injury Attending Provider: Edgardo Mehta Primary Care Provider: Blayne Haynes Consulting Providers: Cindy Jenkins; Akira Flores Instructions Additional Instructions / Restrictions: Please remain off hydrochlorothiazide for now, you will need follow-up with your doctor in approximately 1 week to see if your blood pressure medications need to be readjusted, you will need a repeat BMP (lab work) drawn at the time you see your family practitioner Discharge Orders/Prescriptions Prescriptions: New cefdinir 300 mg capsule 300 mg PO BID Qty: 10 0RF Rx Instructions: start on 04/05/24 Continued atorvastatin 40 mg tablet 40 mg PO QHS apixaban 5 mg tablet 5 mg PO BID Qty: 180 4RF carvedilol 6.25 mg tablet 6.25 mg PO BID Qty: 180 3RF amiodarone 200 mg tablet 100 mg PO DAILY Qty: 90 3RF metformin 500 mg tablet 1,000 mg PO BID Qty: 0 0RF Rx Instructions: hold for 48 hours and start from 04/07/20 verapamil 240 mg tablet extended release 240 mg PO QHS Rx Instructions: TAKE 1 TABLET BY MOUTH EVERY DAY lisinopril 40 mg tablet 40 mg PO DAILY Qty: 90 3RF Discontinued hydrochlorothiazide 25 mg tablet 12.5 mg PO BID Referrals / Follow Up: Blayne Haynes MD [Primary Care Provider] - Within 1 Week Disposition Disposition (needs filled in before D/C Order can be placed): Home, Self Care
--- NOTE | 2024-04-04 12:49 | DS.PCM_ITS ---
Providers Date of Admission: 04/03/24 Date of Discharge: 04/04/24 Primary Care Physician: Dr. Blayne Haynes MD Reason For Visit: AMBER WITH DEHYDRATION, UTI Diagnosis Discharge Diagnosis (1) AMBER (acute kidney injury): Status: Acute Code(s): N17.9 - Acute kidney failure, unspecified (2) Hypotension: Status: Acute Code(s): I95.9 - Hypotension, unspecified (3) Dehydration: Status: Acute Code(s): E86.0 - Dehydration Plan 1. Acute kidney injury secondary to prescription diuretic usage #2 acute cystitis #3 essential hypertension #4 paroxysmal A-fib #5 hypotension secondary to acute kidney injury #6 elevated lactic acid secondary to hypotension #7 type 2 diabetes Medications at Discharge Home Medications metformin 500 mg tablet 1,000 mg (2 x 500 mg) PO BID blood sugar #0 tabs 04/05/20 atorvastatin 40 mg tablet 40 mg PO QHS cholesterol 02/18/23 apixaban 5 mg tablet 5 mg PO BID blood thinner #180 tabs 03/25/23 lisinopril 40 mg tablet 40 mg PO DAILY blood pressure #90 tabs 01/07/24 amiodarone 200 mg tablet 100 mg (1/2 x 200 mg) PO DAILY heart #90 tabs 02/23/24 carvedilol 6.25 mg tablet 6.25 mg PO BID heart #180 TABLETS 02/23/24 verapamil 240 mg tablet,extended release 240 mg PO QHS heart 04/03/24 cefdinir 300 mg capsule 300 mg PO BID #10 caps 04/04/24 Hospital Course Operations None Procedures None Summary of Care Provided Minutes Spent on Discharge: 31 Hospital Course: This 64-year-old white male was seen in the emergency room at [facility] with symptoms of presyncope. Patient felt lightheaded, dizzy, diaphoretic, and nauseous. Patient did not pass out. In the emergency room patient was found to be hypotensive with systolic blood pressures in the 80s, labs were notable for creatinine of 1.49 and a lactic acid of 3.3. UA showed 25 leukocyte esterase, and +3 bacteria. Chest x-ray was unremarkable. CT of the abdomen showed mild bilateral perinephric stranding and stones in the left kidney without evidence of hydronephrosis. Patient was given IV normal saline in the emergency room with good improvement of his blood pressure. Patient was admitted to PCU and maintained on IV antibiotics and fluids. Follow-up labs the next day showed improvement in his creatinine and his white count normalized. It was felt that the patient's use of hydrochlorothiazide contributed to his increased creatinine. On 04/04/2024, patient was seen and examined: On examination he appeared in good health and spirits. Vital signs as documented. Skin warm and dry and without overt rashes. Neck without JVD, neck was supple, trachea midline, thyroid was normal. Lungs clear bilaterally, normal air movement was noted. Heart exam notable for regular rhythm, normal sounds and absence of murmurs, rubs or gallops. Abdomen unremarkable and without evidence of organomegaly, masses, or abdominal aortic enlargement. Bowel sounds are present, abdomen is not distended. Extremities nonedematous, no cyanosis was noted, no clubbing was noted. Neuro: Cranial nerves II through XII are grossly intact, no focal motor deficits were noted, sensation to light touch and pinprick intact, motor exam 5/5 throughout. Psych: Patient is alert and oriented x3, he does not appear anxious or depressed, he does not appear agitated. Patient appeared to be medically stable for discharge home on 04/04/2024, patient was instructed not to resume his hydrochlorothiazide and to follow-up with his PCP regarding repeating his renal function and follow-up for his blood pressure. Weight / BMI Weight Weight: 123.8 kg Body Mass Index (BMI) 37.0 ABG / Lab / Microbiology Data 04/04/24 05:16 04/03/24 13:50 Laboratory: Laboratory Results - last 24 hr 04/03/24 11:30: Magnesium 1.9 04/03/24 12:37: Lactic Acid 3.3 H* 04/03/24 13:50: Sodium 137, Potassium 4.7, Chloride 108 H, Carbon Dioxide 21.0, Anion Gap 8, BUN 27 H, Creatinine 1.27, Estim Creat Clear Calc 77.76, Est GFR (MDRD) Af Amer 73, Est GFR (MDRD) Non-Af 60, BUN/Creatinine Ratio 21.3 H, G lucose 207 H, Calcium 8.7, Troponin I High Sens 6 04/03/24 16:56: Lactic Acid 3.5 H* 04/03/24 22:06: Lactic Acid 2.2 H* 04/04/24 02:28: Lactic Acid 1.6 04/04/24 05:16: WBC 9.7, RBC 4.16 L, Hgb 12.4 L, Hct 36.8 L, MCV 88.5, MCH 29.8, MCHC 33.7, RDW Std Deviation 42.3, RDW Coeff of [place] 13.0, Plt Count 221, MPV 10.0 Microbiology: Microbiology 04/03/24 12:15 Urine, Random Urine Culture - Final Mixed Gram Pos & Gram Neg Org 04/03/24 12:10 Mucosa - Nose SARS-CoV-2, Influenza & RSV (PCR) - Final Radiography Diagnostic Testing: Radiology Impression Chest X-Ray 04/03/24 11:55 IMPRESSION: No radiographic evidence of acute cardiopulmonary disease. Electronically Signed: Chucky Nixon MD at 13:25 EST , Abdomen/Pelvis CT 04/03/24 12:35 IMPRESSION: 1. Punctate nonobstructing stones in the left kidney without evidence of hydronephrosis. 2. Otherwise no focal acute inflammatory process. 3. Nonspecific mild bilateral perinephric stranding. Electronically Signed: Chucky Nixon MD at 14:51 EST , D/C Instructions Discharge Diet: 1800 Calorie Control Diet Weight Bearing Status: Full weight bearing DC O2, CPAP, BIPAP Needs Home O2 Discharge instructions: No Meaningful Use Info Meaningful Use Meaningful Use Diagnoses (Choose all that apply): None applicable Ischemic Stroke Statin Dosing Therapy Reference: STATIN DOSE THERAPY REFERENCE: * Patients > 75 years receive moderate or high dose statin therapy. * Patients 75 years or YOUNGER should receive HIGH intensity statin dose unless contraindicated. You will be required to document reason for non-treatment if statin daily dose does not meet guidelines. HIGH DOSE STATIN THERAPY DAILY Atorvastatin > than or = to 40 mg Rosuvastatin > than or = to 20 mg Amlodipine + Atorvastatin > than or = to 2.5/40 mg Ezetimibe + Simvastatin 10/80 mg Simvastatin 80mg Discharge Plan Admission Admit Date/Time: 04/03/24 15:40 Primary Reason for Your Visit: Hypotension, urinary tract infection, acute kidney injury Attending Provider: Edgardo Mehta Primary Care Provider: Blayne Haynes Consulting Providers: Cindy Jenkins; Akira Flores Instructions Additional Instructions / Restrictions: Please remain off hydrochlorothiazide for now, you will need follow-up with your doctor in approximately 1 week to see if your blood pressure medications need to be readjusted, you will need a repeat BMP (lab work) drawn at the time you see your family practitioner Discharge Orders/Prescriptions Prescriptions: New cefdinir 300 mg capsule 300 mg PO BID Qty: 10 0RF Rx Instructions: start on 04/05/24 Continued atorvastatin 40 mg tablet 40 mg PO QHS apixaban 5 mg tablet 5 mg PO BID Qty: 180 4RF carvedilol 6.25 mg tablet 6.25 mg PO BID Qty: 180 3RF amiodarone 200 mg tablet 100 mg PO DAILY Qty: 90 3RF metformin 500 mg tablet 1,000 mg PO BID Qty: 0 0RF Rx Instructions: hold for 48 hours and start from 04/07/20 verapamil 240 mg tablet extended release 240 mg PO QHS Rx Instructions: TAKE 1 TABLET BY MOUTH EVERY DAY lisinopril 40 mg tablet 40 mg PO DAILY Qty: 90 3RF Discontinued hydrochlorothiazide 25 mg tablet 12.5 mg PO BID Referrals / Follow Up: Blayne Haynes MD [Primary Care Provider] - Within 1 Week Disposition Disposition (needs filled in before D/C Order can be placed): Home, Self Care Charges/Coding Visit Charges Inpatient E&M: 27060 Disch Hosp >30min
== END 2024-04-04 13:55 | disposition home or self-care (01) | DRG 683 ==
LOC: ED 15:55 → PCU 15:59
PROVIDERS: Physician Assistant; Admitting Provider Hospitalist; Emergency Provider Emergency Medicine; PCP Family Medicine; Visit Provider Internal Medicine
DX: N17.9 Acute kidney failure, unspecified (principal); N30.00 Acute cystitis without hematuria; E87.20 Acidosis, unspecified; I69.351 Hemiplegia and hemiparesis following cerebral infarction affecting right dominant side; E11.65 Type 2 diabetes mellitus with hyperglycemia; E66.812 Obesity, class 2; I48.0 Paroxysmal atrial fibrillation; E86.0 Dehydration; I10 Essential (primary) hypertension; I95.9 Hypotension, unspecified; I25.10 Atherosclerotic heart disease of native coronary artery without angina pectoris; E78.5 Hyperlipidemia, unspecified; G47.33 Obstructive sleep apnea (adult) (pediatric); R00.1 Bradycardia, unspecified; R33.9 Retention of urine, unspecified; Z68.36 Body mass index [BMI] 36.0-36.9, adult; T50.2X5A Adverse effect of carbonic-anhydrase inhibitors, benzothiadiazides and other diuretics, initial encounter; N20.0 Calculus of kidney; Z68.37 Body mass index [BMI] 37.0-37.9, adult; Z79.01 Long term (current) use of anticoagulants; Z79.84 Long term (current) use of oral hypoglycemic drugs; Z79.899 Other long term (current) drug therapy; Z86.16 Personal history of COVID-19; Z95.5 Presence of coronary angioplasty implant and graft
CPT/HCPCS: 36415; 71046; 74176; 80048; 81001; 83605; 83735; 84484; 85025; 85027; 87040; 87086; 87088; 87631; 93005; 99285; A4216; J2405

== ENCOUNTER → 2024-04-12 | Outpatient (CLI) | payer MEDICARE, SELFPAY ==
--- NOTE | 2024-04-12 14:37 | ECHOD_ITS ---
Reason For Study: DILATED AORTIC ROOT Procedure This was a 2D Doppler, Color Flow transthoracic echocardiogram. Exam performed in department. Left Ventricle Normal LV size. Left ventricular systolic function is normal. The left ventricular ejection fraction is 55 %. No regional wall motion abnormalities noted. Right Ventricle Normal RV size. Normal systolic function. Atria Normal left atrium. Normal right atrium. Mitral Valve Normal mitral valve. Tricuspid Valve Normal tricuspid valve. Aortic Valve Trisinus/trileaflet aortic valve. Mild focal aortic valve calcification. Pulmonic Valve Normal pulmonic valve. Great Vessels Mildly dilated aortic root. The pulmonary artery is normal size. Inferior vena cava collapse with respiration. Pericardium/Pleural No pericardial effusion. MMode/2D Measurements & Calculations LVIDd: 5.3 cm IVSd: 1.4 cm LVOT diam: 2.4 cm LVIDs: 3.2 cm LVPWd: 1.3 cm LVOT area: 4.4 cm2 RVDd: 4.6 cm FS: 39.6 % asc Aorta Diam: 4.0 cm LAV(MOD-bp): 64.9 ml LVAd ap4: 29.1 cm2 LAV(MOD-bp) Indexed: 26.8 ml/m2 LVLd ap4: 8.6 cm LAV(MOD-sp2): 71.8 ml EDV(MOD-sp4): 81.4 ml LAV(MOD-sp4): 58.7 ml EDV(sp4-el): 83.7 ml LVAs ap4: 15.6 cm2 LVLs ap4: 7.3 cm ESV(MOD-sp4): 28.1 ml ESV(sp4-el): 28.3 ml EF(MOD-sp4): 65.5 % EF(sp4-el): 66.2 % LVAd ap2: 30.6 cm2 SV(MOD-sp4): 53.3 ml SV(MOD-sp2): 61.8 ml LVLd ap2: 8.9 cm SI(MOD-sp4): 22.0 ml/m2 SI(MOD-sp2): 25.6 ml/m2 EDV(MOD-sp2): 87.8 ml EDV(sp2-el): 89.6 ml LVAs ap2: 15.2 cm2 LVLs ap2: 7.4 cm ESV(MOD-sp2): 26.0 ml ESV(sp2-el): 26.5 ml EF(MOD-sp2): 70.4 % SV(sp4-el): 55.4 ml Ao sinus diam: 4.[address] Junction: 3.4 cm LA dimension(2D): 4.2 cm LA A4 area: 20.6 cm2 RA A4 area: 17.7 cm2 TAPSE: 2.1 cm Time Measurements MV dec time: 0.33 sec Doppler Measurements & Calculations MV E max chinedu: 106.2 cm/sec Lat Peak E' Chinedu: 11.9 cm/sec Med Peak E' Chinedu: 10.4 cm/sec MV A max chinedu: 106.2 cm/sec E/E' lat: 8.9 E/E' med: 10.2 MV E/A: 1.0 MV dec slope: 324.1 cm/sec2 Ao V2 max: 201.3 cm/sec LV V1 max: 120.8 cm/sec Ao max P.2 mmHg LV V1 max P.8 mmHg Ao V2 mean: 135.3 cm/sec LV V1 mean P.3 mmHg Ao mean P.5 mmHg LV V1 mean: 86.2 cm/sec Ao V2 VTI: 42.0 cm LV V1 VTI: 28.5 cm AV (velocity ratio): 0.68 CATRINA(I,D): 3.0 cm2 CATRINA(V,D): 2.6 cm2 SV(LVOT): 124.7 ml PA V2 max: 110.4 cm/sec TR max chinedu: 204.3 cm/sec TR max P.7 mmHg ECHO/Echo Complete Interpretation Summary Left ventricular systolic function is normal. The left ventricular ejection fraction is 55 %. Mildly dilated aortic root. Normal LV size. Ordering Physician: Earline Horner Referring Physician: Earline Horner Performed By: Lynn Galvez RDCS
== END | disposition home or self-care (01) ==
LOC: CVS 14:35
PROVIDERS: PCP Family Medicine; Referring Provider Nurse Practitioner Gerontology; Visit Provider Nurse Practitioner Gerontology
DX: I77.810 Thoracic aortic ectasia (principal); I10 Essential (primary) hypertension; Z95.5 Presence of coronary angioplasty implant and graft
CPT/HCPCS: 93306